=== PATIENT | female | born 1960 | race Caucasian/White ===

== ENCOUNTER 2021-02-02 11:14 | Outpatient (REF) | payer BC, SELFPAY ==
[2021-02-02 11:19] LABS: MANUAL DIFF FLAG NO
[2021-02-02 11:41] LABS: Basophils Absolute Auto 0.1 X10*3/uL (0.0-0.2); Basophils Percent Auto 0.9 % (0-2); Eosinophils Absolute Auto 0.2 X10*3/uL (0.0-0.4); Eosinophils Percent Auto 3.2 % (0-4); Hemoglobin 13.4 g/dl (12.0-16.0); Imm Gran Abs Auto 0.02 X10*3/uL (0.00-0.03); Imm Gran Pct Auto 0.4 % (0.0-0.4); Lymphocytes Absolute Auto 1.9 X10*3/uL (1.2-4.9); Lymphocytes Percent Auto 34.3 % (20-40); Mean Corpuscular HGB Conc 32.7 g/dl (31.0-35.0); Mean Corpuscular Hemoglobin 32.3 pg (27.0-33.0); Mean Corpuscular Volume 98.8 fL (80-98); Mean Platelet Volume 9.8 fL (9.4-12.3); Monocytes Absolute Auto 0.5 X10*3/uL (0.1-1.2); Monocytes Percent Auto 8.2 % (2-11); Platelet Count 336 X10*3/uL (160-400); Red Blood Count 4.15 X10*6/uL (4.20-5.50); Red Cell Distribution Width 12.1 % (11.0-16.0); White Blood Count 5.6 X10*3/uL (4.8-10.8)
[2021-02-02 12:13] LABS: Estimated Average Glucose 103 mg/dL; Hemoglobin A1C 119.4293 umol/L; Hemoglobin A1c % 5.2 %
[2021-02-02 12:16] LABS: Alanine Aminotransferase 18 U/L (0-31); Albumin Level 4.2 g/dL (3.5-5.0); Alkaline Phosphatase 90 U/L (39-117); Anion Gap 14 (12-20); Aspartate Amino Transferase 20 U/L (5-31); Bilirubin Total 0.6 mg/dL (0.0-1.0); Blood Urea Nitrogen 15 mg/dL (9-16); Calcium 9.2 mg/dL (8.4-10.2); Carbon Dioxide 25 mmol/L (22-29); Chloride 107 mmol/L (96-108); Cholesterol 251 mg/dL; Estimated Glomerular Filt Rate > 60; Glucose Fasting 102 mg/dL (60-99); HDL Cholesterol 80 mg/dL; LDL Cholesterol Calculated 161 mg/dl; Sodium 142 mmol/L (135-145); Total Protein 6.6 g/dL (6.5-8.0); Triglycerides 52 mg/dL
[2021-02-02 12:27] LABS: Reflex LDLD? No
[2021-02-02 12:29] LABS: TSH reflex Free T4 2.04 uIU/mL (0.32-4.0); Vitamin D 25-OH Total 25.5 ng/mL (>30)
[2021-02-02 12:45] LABS: Creatinine Urine 135.73 mg/dL; Microalbum/Creatinine Ratio Ur 11.7 ug/mg cr
== END 2021-02-02 11:15 | disposition home or self-care (01) ==
LOC: HO.LNP 11:14
PROVIDERS: Visit Provider Internal Medicine
DX: Z00.00 Encounter for general adult medical examination without abnormal findings (principal); E03.9 Hypothyroidism, unspecified; R73.03 Prediabetes; E78.00 Pure hypercholesterolemia, unspecified; E55.9 Vitamin D deficiency, unspecified
CPT/HCPCS: 80053; 80061; 82043; 82306; 83036; 84443; 85025

== ENCOUNTER 2021-02-27 08:08 | Outpatient (REF) | payer BC, SELFPAY ==
--- NOTE | ~2021-02-27 | MM_ITS ---
EXAMINATION: BONE DENSITOMETRY CLINICAL INDICATION: Osteopenia. COMPARISON: Baseline BD dated 12/26/2015. TECHNIQUE: Using a [employer] DXA System (software version: 13.1) manufactured by [employer], dual-energy x-ray absorptiometry was performed of the spine and left hip. The images are of good technical quality. Summary results are attached. FINDINGS: AP SPINE L1-L4: Current: BMD 0.982 g/cm2, Z-score -0.8, T-score -1.6, osteopenia, 12.0% decrease from baseline (<5% change is not significant). Baseline: BMD 1.116 g/cm2. LEFT FEMUR, NECK: Current: BMD 0.761 g/cm2, Z-score -1.0, T-score -2.0, osteopenia. Baseline: BMD 0.828 g/cm2. LEFT FEMUR, TOTAL: Current: BMD 0.866 g/cm2, Z-score -0.5, T-score -1.1, osteopenia, 4.2% decrease from baseline (<5% change is not significant). Baseline: BMD 0.904 g/cm2. IDENTIFIED RISK FACTORS: Menopause. HISTORY OF FRACTURE: None listed. MEDICATIONS: None listed. MM/XR DEXA axial skeleton IMPRESSION: 1. DIAGNOSIS: Osteopenia based on the lowest T-score value of -2.0 in the femoral neck applying World Health Organization criteria. 2. 10-YEAR FRACTURE RISK PREDICTION, FRAX: Major osteoporotic fracture (clinical spine, forearm, hip or shoulder) 9.0%. Hip fracture 1.1%. 3. Treatment Recommendations: NOF guidelines recommend consideration for treatment in postmenopausal women and men age 50 and older presenting with the following: -A hip or vertebral (clinical or morphometric) fracture. -T-score less than or equal to -2.5 at the femoral neck or spine after appropriate evaluation to exclude secondary causes. -Low bone mass at the hip or spine and a 10-year fracture probability by FRAX of greater than or equal to 3% for hip fracture or greater than or equal to 20% for major osteoporotic fracture based on the [place] adapted WHO algorithm. 4. Other Recommendations: All treatment decisions require clinical judgment and consideration of individual patient factors, including patient preferences, comorbidities, previous drug use, risk factors not captured in the FRAX model (e.g. frailty, falls, vitamin D deficiency, increased bone turnover, interval significant decline in bone density) and possible under or overestimation of fracture risk by FRAX. Additional medical evaluation for secondary cause of low bone mineral density may be appropriate. FUTURE SCAN RECOMMENDATION: People with diagnosed cases of osteoporosis or at high risk for fracture should have regular bone mineral density tests. For patients eligible for Medicare, routine testing is allowed once every 2 years. The testing frequency can be increased to one year for patients who have rapidly progressing disease, those who are receiving or discontinuing medical therapy to restore bone mass, or have additional risk factors.
== END 2021-02-27 08:09 | disposition home or self-care (01) ==
LOC: HO.MAMMO 08:08
PROVIDERS: PCP Internal Medicine; Visit Provider Internal Medicine
DX: Z13.820 Encounter for screening for osteoporosis (principal); M85.80 Other specified disorders of bone density and structure, unspecified site; Z78.0 Asymptomatic menopausal state
CPT/HCPCS: 77080

== ENCOUNTER 2021-05-28 10:22 | Outpatient (REF) | payer BC, SELFPAY ==
--- NOTE | ~2021-05-28 | US_ITS ---
EXAMINATION: US EXTRACRANIAL CAROTID DUPLEX, BILATERAL CLINICAL INFORMATION: This a 60-year-old female with TIA. Possible carotid artery disease. COMPARISON: None TECHNIQUE: Real-time ultrasound and Doppler techniques (integrating B-mode 2-D vascular images, Doppler spectral analysis and color-flow Doppler imaging) were utilized to interrogate the extracranial carotid arteries, the vertebral arteries and proximal subclavian arteries bilaterally. The degree of stenosis is determined by criteria similar to NASCET. FINDINGS: Right Side: 1. There is minimal atherosclerotic plaque seen in the bifurcation/proximal ICA region. 2. The common carotid artery PSV proximally is 71 cm/s and distally 90 cm/s. 3. The proximal internal carotid artery velocities are 66 cm/s systolic and 28 cm/s diastolic. 4. The proximal external carotid artery PSV is 81 cm/s. 5. The vertebral artery shows antegrade flow. 6. The subclavian artery waveforms are normal. Left Side: 1. There is minimal atherosclerotic plaque seen in the bifurcation/proximal ICA region. 2. The common carotid artery PSV proximally is 80 cm/s and distally 85 cm/s. 3. The proximal internal carotid artery velocities are 120 cm/s systolic and 43 cm/s diastolic. 4. The proximal external carotid artery PSV is 85 cm/s. 5. The vertebral artery shows antegrade flow. 6. The subclavian artery waveforms are normal. US/US carotid duplex BI IMPRESSION: 1. RIGHT: Minimal, non-hemodynamically significant stenosis of the proximal right internal carotid artery corresponding to a 0-49% stenosis by velocity criteria. 2. LEFT: Minimal, non-hemodynamically significant stenosis of the proximal left internal carotid artery corresponding to a 0-49% stenosis by velocity criteria.
== END 2021-05-28 10:23 | disposition home or self-care (01) ==
LOC: HO.US 10:22
PROVIDERS: PCP Internal Medicine; Visit Provider Internal Medicine
DX: Z86.73 Personal history of transient ischemic attack (TIA), and cerebral infarction without residual deficits (principal)
CPT/HCPCS: 93880

== ENCOUNTER → 2021-06-16 10:36 | Outpatient (REF) | payer BC, SELFPAY | LOC: HO.CARD 10:36 | PROVIDERS: Visit Provider Internal Medicine | DX: G45.9 Transient cerebral ischemic attack, unspecified (principal) | CPT/HCPCS: 93270 ==

== ENCOUNTER → 2021-08-12 06:57 | Outpatient (REF) | payer BC, SELFPAY ==
--- NOTE | 2021-08-12 07:02 | HM_ITS ---
Conclusion: 1. Patient was monitored for total period of 14 days 2. Baseline rhythm is normal sinus rhythm with average heart of 81 beats per minute 3. No significant pauses or bradycardia noted 4.No atrial fibrillation noted 5. Very rare ectopy is noted 6. 1 patient reported event correlated with sinus rhythm MTDD
== END ==
LOC: HO.CARD 06:57
PROVIDERS: PCP Internal Medicine; Visit Provider Internal Medicine
DX: G45.9 Transient cerebral ischemic attack, unspecified (principal)
CPT/HCPCS: 93246

== ENCOUNTER → 2021-08-20 07:40 | Outpatient (REF) | payer BC, SELFPAY ==
--- NOTE | 2021-08-20 07:44 | CA_ITS ---
Transthoracic Echocardiogram Patient (Last, First, Middle): Vandana Cai, Gender: Female Date of : 1960 Age: 61 Procedure Date: 08/20/2021 Procedure Type: Transthoracic Echocardiogram Location: OP Height: 157.48 cm Weight: 75.75 kg BSA: 1.77 m2 Heart Rate: bpm BP: 120 / 80 mmHg Director Perioperative: HARJEET Referring MD: Hal Castelan MD Symptoms: G45.9 TIA , Study Quality: Good ECG Rhythm: Sinus Conclusions: - The left ventricular systolic function is normal. The calculated ejection fraction is 61% by biplane method. - Bubble study strongly positive during rest as well as valsalva. - No obvious valvular pathology seen on this study. Findings Left Ventricle Normal left ventricular cavity size. There is normal left ventricular wall thickness. The left ventricular systolic function is normal. The calculated ejection fraction is 61% by biplane method. There is no evidence of regional wall motion abnormalities. Diastolic function is normal for age. Right Ventricle Normal right ventricular cavity size and systolic function. Atria Both atria are normal in size. Bubble study strongly positive during rest as well as valsalva. Indicates patent foramen ovale. Aortic Valve There is a normal trileaflet aortic valve. There is no aortic valve stenosis. There is no aortic valve regurgitation. Mitral Valve There is mild anterior mitral leaflet thickening. There is trace mitral valve regurgitation. There is no mitral valve stenosis. Pulmonic Valve The pulmonic valve was not well visualized. Tricuspid Valve Normal tricuspid valve structure. There is trace tricuspid valve regurgitation. The pulmonary artery systolic pressure is normal. Great Vessels The aortic annulus, sinuses of valsalva, and asc aorta are normal in size. Venous The inferior vena cava is normal in size and collapses greater than 50% with inspiration. Pericardium/Pleural There is no evidence of pericardial effusion. Prior Study Comparison No prior study available for comparison. Recommendations, Care & Conclusions No obvious valvular pathology seen on this study. Measurements 2D Linear Measurements IVSd: 1.10 0.6-0.9/0.6-1.0 cm LVIDd: 4.06 3.9-5.3/4.2-5.9 cm LVIDd Index: 2.29 2.4-3.2/2.2-3.1 cm/m2 LVIDs: 2.81 2.0-3.6 cm LVPWd: 1.03 0.7-1.1 cm Ao Root: 3.00 2.1-3.5 cm LA Diam: 3.50 2.7-3.8/3.0-4.0 cm LAIDs Index: 1.98 1.5-2.3 cm/m2 LV Mass: 177.06 67-162/88-224 g LV Mass Index: 100.04 43-95/49-115 g/m2 LVOT Diam: 2.00 3.0+(-)1.3 cm 2D Systolic Function EF 4C: 58.30 >55% EF 2C: 62.30 >55% EF BiP: 60.60 >55% Mitral Valve MV Pk E: 0.79 MV PK A: 0.71 MV Decel Time: 250.00 E/A: 1.10 E'Lateral: 6.96 E'Medial: 6.74 E/E' Med: 11.70 E/E' Lat: 11.30 PHT: 73.00 MVA PHT: 3.01 Decel [place]: 3.14 Aortic Valve AoV Pk Josh: 1.13 AoV Mn Josh: 0.78 AoV VTI: 0.23 AoV Pk Grad: 5.00 Aov Mn Grad: 3.00 HERBERT Cont.VTI: 2.56 LVOT LVOT Pk Josh: 0.84 LVOT Mn Josh: 0.55 LVOT VTI: 0.19 LVOT Pk Grad: 3.00 LVOT Mn Grad: 1.00 LVOT Diam: 2.00 LVOT Area: 3.14 Diastolic Function MV Pk E: 0.79 MV Pk A: 0.71 E/A: 1.10 E'Medial: 6.74 E/E' Med: 11.70 E' Laterial: 6.96 E/E' Lat: 11.30 Right Ventricle TAPSE (mm): 17.00 TVS' Josh: 11.40 Tricuspid Valve TR Pk Josh: 1.93 TR Pk Grad: 15.00 RA Press: 3.00 RVSP: 18.00 Great Vessels Aorta Ao Root-2D: 3.00 2.0-3.7 cm Ao Asc: 3.10 2.1-3.4 cm Ao Arch: 2.30 Updated in Other Vendor System with Status of Final Arnel Emery MD electronically signed on 08/22/2021 11:51:30 AM with status of Final
== END ==
LOC: HO.CARD 07:40
PROVIDERS: PCP Internal Medicine; Visit Provider Internal Medicine
DX: G45.9 Transient cerebral ischemic attack, unspecified (principal)
CPT/HCPCS: 93306

== ENCOUNTER → 2021-08-28 11:08 | Outpatient (BNVA) | payer BC, SELFPAY | PROVIDERS: PCP Internal Medicine; Referring Provider Internal Medicine; Visit Provider Internal Medicine Cardiovascular Disease ==

== ENCOUNTER 2021-08-29 08:09 | Outpatient (REF) | payer BC, SELFPAY ==
[2021-08-29 09:05] LABS: Partial Thromboplastin Time 33.5 SEC (24.1-38.0)
[2021-08-31 15:01] LABS: Cardiolipin IgG Ab <2.0 GPL-U/mL; Cardiolipin IgM Ab <2.0 MPL-U/mL
[2021-08-31 17:01] LABS: Homocysteine 12.2 umol/L (<10.4)
[2021-09-01 22:57] LABS: Protein C Activity 140 % (70-180); Protein S Activity rflx Tot&Fr 98 % (60-140)
[2021-09-05 12:51] LABS: Lipoprotein Asso Phospholip A2 74 (<124)
[2021-09-05 23:53] LABS: Factor V Leiden NEGATIVE
== END 2021-08-29 08:10 | disposition home or self-care (01) ==
LOC: HO.LAB 08:09
PROVIDERS: PCP Internal Medicine; Visit Provider Internal Medicine Cardiovascular Disease
DX: I63.9 Cerebral infarction, unspecified (principal)
CPT/HCPCS: 36415; 81241; 83090; 83698; 85302; 85303; 85305; 85306; 85730; 86147

== ENCOUNTER 2021-10-26 10:42 | Outpatient (REF) | payer BC, SELFPAY ==
[2021-10-26 11:20] LABS: Estimated Average Glucose 111 mg/dL; Hemoglobin A1c % 5.5 %
[2021-10-26 11:30] LABS: Alanine Aminotransferase 42 U/L (0-31); Alkaline Phosphatase 119 U/L (39-117); Aspartate Amino Transferase 30 U/L (5-31); Bilirubin Direct 0.3 mg/dL (0.0-0.5); Cholesterol 165 mg/dL; Glucose Fasting 101 mg/dL (60-99); HDL Cholesterol 68 mg/dL; LDL Cholesterol Calculated 88 mg/dl; Total Protein 6.7 g/dL (6.5-8.0); Triglycerides 46 mg/dL
== END 2021-10-26 10:43 | disposition home or self-care (01) ==
LOC: HO.LNP 10:42
PROVIDERS: PCP Internal Medicine; Visit Provider Internal Medicine
DX: E78.00 Pure hypercholesterolemia, unspecified (principal); R73.09 Other abnormal glucose
CPT/HCPCS: 80061; 80076; 82947; 83036

== ENCOUNTER 2021-12-29 12:54 | Outpatient (REF) | payer BC, SELFPAY ==
[2021-12-29 13:17] LABS: MANUAL DIFF FLAG NO
[2021-12-29 14:44] LABS: Basophils Absolute Auto 0.1 X10*3/uL (0.0-0.2); Eosinophils Absolute Auto 0.2 X10*3/uL (0.0-0.4); Eosinophils Percent Auto 3.3 % (0-4); Hemoglobin 13.2 g/dl (12.0-16.0); Imm Gran Abs Auto 0.01 X10*3/uL (0.00-0.03); Imm Gran Pct Auto 0.2 % (0.0-0.4); Lymphocytes Absolute Auto 1.9 X10*3/uL (1.2-4.9); Lymphocytes Percent Auto 37.2 % (20-40); Mean Corpuscular HGB Conc 32.2 g/dl (31.0-35.0); Mean Corpuscular Hemoglobin 31.5 pg (27.0-33.0); Mean Corpuscular Volume 97.9 fL (80.0-98.0); Mean Platelet Volume 9.7 fL (9.4-12.3); Monocytes Absolute Auto 0.4 X10*3/uL (0.1-1.2); Monocytes Percent Auto 7.4 % (2-11); Neutrophils Absolute Auto 2.6 x10*3/uL (2.0-8.3); Neutrophils Percent Auto 50.9 % (45-73); Platelet Count 354 X10*3/uL (160-400); Red Blood Count 4.19 X10*6/uL (4.20-5.50); Red Cell Distribution Width 12.3 % (11.0-16.0); White Blood Count 5.2 X10*3/uL (4.8-10.8)
[2021-12-29 14:47] LABS: INTERNATIONAL NORM RATIO 0.9 (0.9-1.1); Prothrombin Time 10.6 SEC (10.0-13.1)
[2021-12-29 15:12] LABS: Anion Gap 11 (12-20); Blood Urea Nitrogen 12 mg/dL (9-16); Calcium 8.9 mg/dL (8.4-10.2); Carbon Dioxide 27 mmol/L (22-29); Chloride 105 mmol/L (96-108); Estimated Glomerular Filt Rate > 60; Glucose Random 85 mg/dL (60-115); Potassium 4.1 mmol/L (3.3-5.1); Sodium 139 mmol/L (135-145)
== END 2021-12-29 12:55 | disposition home or self-care (01) ==
LOC: HO.LAB 12:54
PROVIDERS: PCP Internal Medicine; Visit Provider Internal Medicine Cardiovascular Disease
DX: I63.10 Cerebral infarction due to embolism of unspecified precerebral artery (principal)
CPT/HCPCS: 36415; 80048; 85025; 85610

== ENCOUNTER 2022-01-25 10:19 | Outpatient (REF) | payer BC, SELFPAY ==
[2022-01-25 10:23] LABS: MANUAL DIFF FLAG NO
[2022-01-25 10:38] LABS: Basophils Absolute Auto 0.1 X10*3/uL (0.0-0.2); Basophils Percent Auto 0.9 % (0-2); Eosinophils Absolute Auto 0.2 X10*3/uL (0.0-0.4); Hematocrit 40.5 % (37.0-47.0); Hemoglobin 13.4 g/dl (12.0-16.0); Imm Gran Abs Auto 0.03 X10*3/uL (0.00-0.03); Imm Gran Pct Auto 0.4 % (0.0-0.4); Lymphocytes Absolute Auto 1.9 X10*3/uL (1.2-4.9); Mean Corpuscular HGB Conc 33.1 g/dl (31.0-35.0); Mean Corpuscular Hemoglobin 32.2 pg (27.0-33.0); Mean Corpuscular Volume 97.4 fL (80.0-98.0); Monocytes Absolute Auto 0.5 X10*3/uL (0.1-1.2); Monocytes Percent Auto 7.8 % (2-11); Neutrophils Absolute Auto 4.2 x10*3/uL (2.0-8.3); Neutrophils Percent Auto 60.9 % (45-73); Platelet Count 321 X10*3/uL (160-400); Red Blood Count 4.16 X10*6/uL (4.20-5.50); Red Cell Distribution Width 12.2 % (11.0-16.0)
[2022-01-25 10:51] LABS: Estimated Average Glucose 105 mg/dL; Hemoglobin A1c % 5.3 %
[2022-01-25 11:01] LABS: Alanine Aminotransferase 31 U/L (0-31); Albumin Level 4.1 g/dL (3.5-5.0); Alkaline Phosphatase 99 U/L (39-117); Anion Gap 14 (12-20); Aspartate Amino Transferase 26 U/L (5-31); Bilirubin Total 0.9 mg/dL (0.0-1.0); Blood Urea Nitrogen 14 mg/dL (9-16); Calcium 9.1 mg/dL (8.4-10.2); Carbon Dioxide 26 mmol/L (22-29); Chloride 106 mmol/L (96-108); Cholesterol 172 mg/dL; Estimated Glomerular Filt Rate > 60; Glucose Fasting 89 mg/dL (60-99); HDL Cholesterol 68 mg/dL; LDL Cholesterol Calculated 91 mg/dl; Potassium 4.7 mmol/L (3.3-5.1); Sodium 141 mmol/L (135-145); Total Protein 6.8 g/dL (6.5-8.0); Triglycerides 69 mg/dL
[2022-01-25 11:21] LABS: TSH reflex Free T4 0.98 uIU/mL (0.32-4.0); Vitamin D 25-OH Total 33.1 ng/mL (>30)
[2022-01-25 11:33] LABS: Microalbum/Creatinine Ratio Ur 17.6 ug/mg cr
== END 2022-01-25 10:20 | disposition home or self-care (01) ==
LOC: HO.LNP 10:19
PROVIDERS: Visit Provider Internal Medicine
DX: Z00.00 Encounter for general adult medical examination without abnormal findings (principal); E03.9 Hypothyroidism, unspecified; R73.03 Prediabetes; E78.00 Pure hypercholesterolemia, unspecified; E55.9 Vitamin D deficiency, unspecified
CPT/HCPCS: 80053; 80061; 82043; 82306; 83036; 84443; 85025

== ENCOUNTER 2022-12-24 11:01 | Outpatient (REF) | payer BC, SELFPAY ==
[2022-12-24 11:12] LABS: MANUAL DIFF FLAG NO
[2022-12-24 11:20] LABS: Basophils Percent Auto 0.7 % (0-2); Eosinophils Absolute Auto 0.2 X10*3/uL (0.0-0.4); Eosinophils Percent Auto 3.3 % (0-4); Hematocrit 42.3 % (37.0-47.0); Hemoglobin 14.1 g/dl (12.0-16.0); Imm Gran Abs Auto 0.02 X10*3/uL (0.00-0.03); Imm Gran Pct Auto 0.4 % (0.0-0.4); Lymphocytes Absolute Auto 1.4 X10*3/uL (1.2-4.9); Lymphocytes Percent Auto 25.3 % (20-40); Mean Corpuscular HGB Conc 33.3 g/dl (31.0-35.0); Mean Corpuscular Hemoglobin 32.4 pg (27.0-33.0); Mean Corpuscular Volume 97.2 fL (80.0-98.0); Mean Platelet Volume 9.7 fL (9.4-12.3); Monocytes Absolute Auto 0.4 X10*3/uL (0.1-1.2); Monocytes Percent Auto 7.5 % (2-11); Neutrophils Absolute Auto 3.5 x10*3/uL (2.0-8.3); Neutrophils Percent Auto 62.8 % (45-73); Platelet Count 353 X10*3/uL (160-400); Red Blood Count 4.35 X10*6/uL (4.20-5.50); Red Cell Distribution Width 12.4 % (11.0-16.0); White Blood Count 5.5 X10*3/uL (4.8-10.8)
[2022-12-24 11:26] LABS: Estimated Average Glucose 100 mg/dL; Hemoglobin A1c % 5.1 %
[2022-12-24 11:36] LABS: Alanine Aminotransferase 22 U/L (0-31); Albumin Level 4.1 g/dL (3.5-5.0); Alkaline Phosphatase 104 U/L (39-117); Anion Gap 15 (12-20); Aspartate Amino Transferase 24 U/L (5-31); Bilirubin Total 0.7 mg/dL (0.0-1.0); Blood Urea Nitrogen 15 mg/dL (9-16); Calcium 9.9 mg/dL (8.4-10.2); Carbon Dioxide 25 mmol/L (22-29); Chloride 108 mmol/L (96-108); Cholesterol 261 mg/dL; Estimated Glomerular Filt Rate > 60; Glucose Fasting 107 mg/dL (60-99); HDL Cholesterol 72 mg/dL; LDL Cholesterol Calculated 173 mg/dl; Potassium 4.7 mmol/L (3.3-5.1); Sodium 143 mmol/L (135-145); Total Protein 6.6 g/dL (6.5-8.0); Triglycerides 84 mg/dL
[2022-12-24 11:50] LABS: TSH reflex Free T4 0.76 uIU/mL (0.32-4.0); Vitamin D 25-OH Total 34.5 ng/mL (>30)
== END 2022-12-24 11:02 | disposition home or self-care (01) ==
LOC: HO.LNP 11:01
PROVIDERS: Visit Provider Internal Medicine
DX: Z00.00 Encounter for general adult medical examination without abnormal findings (principal); E03.9 Hypothyroidism, unspecified; R73.03 Prediabetes; E78.00 Pure hypercholesterolemia, unspecified; E55.9 Vitamin D deficiency, unspecified
CPT/HCPCS: 80053; 80061; 82306; 83036; 84443; 85025

== ENCOUNTER 2022-12-31 11:01 | Outpatient (REF) | payer BC, SELFPAY | END 2022-12-31 11:02 | disposition home or self-care (01) | LOC: HO.LNP 11:01 | PROVIDERS: Visit Provider Internal Medicine | DX: Z00.00 Encounter for general adult medical examination without abnormal findings (principal); R73.03 Prediabetes | CPT/HCPCS: 81001; 82043; 87086 ==

== ENCOUNTER 2023-04-11 11:05 | Outpatient (REF) | payer BC, SELFPAY ==
[2023-04-11 11:47] LABS: Estimated Average Glucose 103 mg/dL; Hemoglobin A1c % 5.2 % (<6.0)
[2023-04-11 12:22] LABS: Cholesterol 258 mg/dL (<200); HDL Cholesterol 69 mg/dL (>40); LDL Cholesterol Calculated 174 mg/dL (<100); Triglycerides 77 mg/dL (<150)
[2023-04-11 12:35] LABS: Alanine Aminotransferase 20 U/L (0-31); Albumin Level 4.2 g/dL (3.5-5.0); Alkaline Phosphatase 86 U/L (39-117); Aspartate Amino Transferase 23 U/L (5-31); Bilirubin Direct 0.2 mg/dL (0.0-0.5); Bilirubin Total 0.7 mg/dL (0.0-1.0); Glucose Fasting 97 mg/dL (60-99)
[2023-04-11 13:37] LABS: Reflex LDLD? No
== END 2023-04-11 11:06 | disposition home or self-care (01) ==
LOC: HO.LNP 11:05
PROVIDERS: Visit Provider Internal Medicine
DX: R73.03 Prediabetes (principal); E78.00 Pure hypercholesterolemia, unspecified
CPT/HCPCS: 80061; 80076; 82947; 83036

== ENCOUNTER 2023-04-13 11:56 | Outpatient (REF) | payer BC, SELFPAY ==
--- NOTE | ~2023-04-13 | XR_ITS ---
EXAMINATION: XR HIP, RIGHT CLINICAL INFORMATION: Right hip pain. COMPARISON: CT abdomen and pelvis 06/30/2015. TECHNIQUE: 2 views of the right hip. FINDINGS: Mild degenerative changes on limited views of the inferior aspect of the right sacroiliac joint. Right femoral head is well seated within the acetabulum. Mild degenerative changes in the right hip with mild lateral acetabular hypertrophic change. Small, 7 mm oval ossicle at the inferior aspect of the pubic symphysis was present on CT scan of 06/30/2015. XR/XR hip RT min 2V IMPRESSION: Mild degenerative changes right hip. Additional imaging with CT scan or MRI should be considered for better visualization as these modalities are much more sensitive for detection of fracture or other underlying pathology.
== END 2023-04-13 11:57 | disposition home or self-care (01) ==
LOC: HO.XRAY 11:56
PROVIDERS: PCP Internal Medicine; Visit Provider Internal Medicine
DX: M25.551 Pain in right hip (principal)
CPT/HCPCS: 73502

== ENCOUNTER 2023-05-10 08:20 | Outpatient (REF) | payer BC, SELFPAY ==
--- NOTE | ~2023-05-10 | US_ITS ---
EXAMINATION: US ABDOMEN COMPLETE CLINICAL INFORMATION: Gallbladder disease. COMPARISON: Renal ultrasound 03/24/2017. X-ray abdomen KUB 07/30/2015. CT abdomen and pelvis 06/30/2015. Ultrasound abdomen 01/12/2010. TECHNIQUE: Real-time imaging of the abdominal viscera. FINDINGS: PANCREAS: Normal. ABDOMINAL AORTA: The proximal, mid, and distal segments are normal in caliber. INFERIOR VENA CAVA: Visualized portions are normal. LIVER: The liver is normal in size. The liver contour is normal. There is diffuse increased liver parenchymal echogenicity. No focal hepatic lesion. There is no intrahepatic biliary duct dilatation seen. GALLBLADDER: The gallbladder is physiologically distended without evidence of stones, sludge, polyps, wall thickening or pericholecystic fluid. COMMON BILE DUCT: Normal in caliber measuring 0.4 cm in diameter. RIGHT KIDNEY: There is an extrarenal pelvis, without norah hydronephrosis. No renal calculi or focal parenchymal lesions. The kidney measures 12.4 cm in maximum dimension. LEFT KIDNEY: There is an extrarenal pelvis, without norah hydronephrosis or renal calculi. The kidney measures 11.2 cm in maximum dimension. At the upper pole, a 1.3 cm benign, simple cyst is seen, for which no imaging follow-up is recommended. SPLEEN: Normal. The spleen measures 9.2 cm in maximum dimension. FREE FLUID: None. US/US abdomen complete IMPRESSION: There is generalized increase in hepatic echotexture, consistent with fatty infiltration or hepatocellular disease. Please correlate clinically. No focal hepatic mass or intrahepatic biliary dilatation is seen.
== END 2023-05-10 08:21 | disposition home or self-care (01) ==
LOC: HO.US 08:20
PROVIDERS: PCP Internal Medicine; Visit Provider Internal Medicine
DX: K82.9 Disease of gallbladder, unspecified (principal)
CPT/HCPCS: 76700

== ENCOUNTER 2023-07-26 10:07 | Outpatient (REF) | payer BC, SELFPAY ==
--- NOTE | ~2023-07-26 | FL_ITS ---
EXAMINATION: XR FLUOROSCOPY UPPER GI WITH AIR CLINICAL INFORMATION: Chronic nausea COMPARISON: None TECHNIQUE: Fluoroscopic air contrast upper GI examination was performed utilizing standard techniques with thin and thick barium and effervescent granules. Numerous spot images were obtained. FINDINGS: Inter-atrial baffle device is present, consistent with history of PFO closure. Dual and single contrast images of the esophagus demonstrate normal caliber, contour, and mucosal pattern. No evidence of stricture, mass, or ulcerations identified. Nonpropulsive tertiary contractions are seen in the mid and distal esophagus. A small to moderate type I hiatal hernia is present. Gastroesophageal reflux is seen up to the thoracic inlet. Dual contrast and single contrast images of the stomach demonstrated normal contour and mucosal pattern without evidence of mass, ulceration, or other abnormality. Contrast freely passed into the gastric antrum and duodenal bulb without delay. Single and air-contrast images of the duodenal bulb demonstrate no abnormality. The duodenal sweep has a normal appearance, course, and mucosal fold appearance. No malrotation. The imaged proximal jejunum has a normal fold pattern and caliber. FLUOROSCOPY TIME: 3 minutes 17 seconds Number of Spot Images: 13 Number of Cine: 7 DOSE AREA PRODUCT: [id number] (microgray-meter squared) FL/FL upper GI w air IMPRESSION: 1. Mild esophageal dysmotility 2. Small to moderate type I hiatal hernia 3. Significant gaseous esophageal reflux This procedure was performed by Dontrell Handley PA-C, and supervised by Dr. Dickinson
== END 2023-07-26 10:08 | disposition home or self-care (01) ==
LOC: HO.XRAY 10:07
PROVIDERS: PCP Internal Medicine; Visit Provider Internal Medicine
DX: R11.0 Nausea (principal)
CPT/HCPCS: 74246

== ENCOUNTER → 2023-07-26 10:09 | Outpatient (BNV) | payer BC, SELFPAY | PROVIDERS: PCP Internal Medicine; Visit Provider Radiology Diagnostic Radiology | DX: R11.0 Nausea (principal) | CPT/HCPCS: 74246 ==

== ENCOUNTER 2023-08-22 06:22 | Day surgery (SDC) | payer BC, SELFPAY ==
[2023-08-18 14:40] VITALS: BMI 32.7
--- NOTE | 2023-08-19 10:26 | HO.ANESPROP2 ---
Documented by User: Susan Marie NP 08/19/23 10:26 HPI - Anesthesia Eval Consult details Narrative: 63yo F for ?Upper Endoscopy and Colonoscopy PMFSH Active Problems Active Problems: All Active Problems (Updated 08/18/23 @ 14:40 by Joslyn Ram RN) PFO (patent foramen ovale) (Acute) CVA (cerebral vascular accident) (Acute) Past Medical History Medical History Renal calculi Asthma GERD (gastroesophageal reflux disease) Hypothyroid PFO (patent foramen ovale) CVA (cerebral vascular accident) Surgical History Surgical History Hx of heart surgery Hx of tonsillectomy Hx of dilation and curettage H/O colonoscopy Hx of lithotripsy Social History Social History Patient Tobacco Use Status: Never used Tobacco Are you DNR?: No Advance Directives: No Advance Directives Information Provided: Yes Nutrition Risks: No Nutritional Risk Meds Allergies Allergy/AdvReac Type Severity Reaction Status Date / Time morphine [MORPHINE] Allergy Intermediate CHEST Verified 08/22/23 06:35 TIGHTNESS, shortness of breath Home Medications Medication Instructions Recorded Confirmed Last Taken Type albuterol sulfate 90 mcg/actuation 90 mcg inhalation Q4H PRN 08/28/21 08/18/23 Unknown History aerosol inhaler Shortness Of Breath Or Wheezing aspirin 81 mg tablet,delayed 81 mg PO DAILY 08/28/21 08/18/23 Unknown History release (Adult Low Dose Aspirin) levothyroxine 88 mcg tablet 88 mcg PO QAM 08/28/21 08/18/23 Unknown History lisinopril 10 1 tab PO DAILY 08/18/23 08/18/23 08/22/23 History mg-hydrochlorothiazide 12.5 mg tablet omeprazole 20 mg capsule,delayed 20 mg PO QAM 08/18/23 08/18/23 Unknown History release Exam Height,Weight and Vital Signs: Height 5 ft 2 in Weight 81.193 kg Assessment and Plan Assessment Anesthesia Assessment: Chart Reviewed Documented by User: Josue Alonso MD 08/22/23 07:20 [facility] Past Medical History Medical History Renal calculi Asthma GERD (gastroesophageal reflux disease) Hypothyroid PFO (patent foramen ovale) CVA (cerebral vascular accident) Surgical History Surgical History Hx of heart surgery Hx of tonsillectomy Hx of dilation and curettage H/O colonoscopy Hx of lithotripsy Social History Social History Patient Tobacco Use Status: Never used Tobacco Are you DNR?: No Advance Directives: No Advance Directives Information Provided: Yes Nutrition Risks: No Nutritional Risk Meds Allergies Allergy/AdvReac Type Severity Reaction Status Date / Time morphine [MORPHINE] Allergy Intermediate CHEST Verified 08/22/23 06:35 TIGHTNESS, shortness of breath Home Medications Medication Instructions Recorded Confirmed Last Taken Type albuterol sulfate 90 mcg/actuation 90 mcg inhalation Q4H PRN 08/28/21 08/18/23 Unknown History aerosol inhaler Shortness Of Breath Or Wheezing aspirin 81 mg tablet,delayed 81 mg PO DAILY 08/28/21 08/18/23 Unknown History release (Adult Low Dose Aspirin) levothyroxine 88 mcg tablet 88 mcg PO QAM 08/28/21 08/18/23 Unknown History lisinopril 10 1 tab PO DAILY 08/18/23 08/18/23 08/22/23 History mg-hydrochlorothiazide 12.5 mg tablet omeprazole 20 mg capsule,delayed 20 mg PO QAM 08/18/23 08/18/23 Unknown History release Exam Airway Mallampati Class: II TM Dist: <=3cm Neck ROM: Full Loose/Missing/Broken Teeth: Yes (chipped 15) Heart: rrr Lungs: cta b/l Assessment and Plan Final Anesthetic Review ASA Class: III Final Preanesthetic Review: No Changes in Pt Med Stat, Meds/Allgs Chart Reviewed, Consent Obtained/Reviewed and Anes Risks/Benef Reviewed Patient Risk: Intermediate Procedure Risk: Intermediate Anesthetic Plan Anesthetic Plan: MAC: Disposition: Standard PACU
[2023-08-22 06:45] VITALS: BMI 32.5
[2023-08-22] MEDS: Lactated Ringers 1,000 ML 100 ML IVCONT (06:51)
[2023-08-22 06:58] VITALS: BP 139/83; PULSE 80; RESP 18; TEMP 36.6; O2SAT 97
[2023-08-22 08:30] VITALS: BP 91/56; PULSE 79; RESP 17; TEMP 36.1; O2SAT 100
--- NOTE | 2023-08-22 08:30 | P.BOP_ITS ---
Brief Operative Note Date of Service: 08/22/23 Pre-op diagnosis: GERD, Screening Post-op diagnosis: other (Hiatal hernia, Colon polyp) Procedure: EGD with biopsies, Colonoscopy to the cecum with bx/removal of polyp Surgeon: Aashish Dimas MD Anesthesia: MAC Was an Locomotive Electrician used for this Procedure?: No Estimated blood loss (mL): 2.0 Pathology: other (A. Gastric antrum B. EGJ at 33cm C. Transverse colon polyp) Condition: stable Disposition: PACU
[2023-08-22 08:45] VITALS: BP 112/65; PULSE 61; RESP 16; TEMP 36.1; O2SAT 100
--- NOTE | 2023-08-22 14:23 | OP_ITS ---
DATE OF SERVICE: 08/22/2023 SURGEON: Aashish Dimas MD INDICATIONS: The patient presents for evaluation of nausea, gastroesophageal reflux, and colorectal cancer screening. PREOPERATIVE DIAGNOSIS: POSTOPERATIVE DIAGNOSIS: PROCEDURE PERFORMED: Esophagogastroduodenoscopy with biopsies and colonoscopy to the cecum with biopsy and removal of polyp. ESTIMATED BLOOD LOSS: COMPLICATIONS: ANESTHESIA: Monitored anesthesia care. ASSISTANTS: SPECIMENS: POSTOPERATIVE DIAGNOSES: GERD, hiatal hernia, minimal gastritis, small colon polyp, diverticulosis, and internal hemorrhoids. DESCRIPTION OF PROCEDURE: The patient was placed in the left lateral decubitus position. The Olympus video gastroscope was passed in the posterior oropharynx and upper esophagus under direct vision. The scope was passed slowly to the distal esophagus. The gastroesophageal junction was seen at 33 cm and appeared to be minimally irregular consistent with reflux. There was no gross evidence of esophagitis nor Marlow's esophagus. There was a moderate-sized hiatal hernia with normal mucosa. The scope was advanced to the pylorus and the duodenum was cannulated to the descending portion. The duodenum including the bulb appeared normal without mass or ulceration. The scope was withdrawn back to the stomach. The gastric antrum had some minimal areas of erythema, but no erosions or ulceration. There was good peristalsis. Biopsies were obtained from the antrum. The scope was retroflexed visualizing the proximal stomach carefully, which appeared normal, without any sign of mass or ulceration. The scope was straightened and withdrawn back to the esophagus. Biopsies were obtained at the EG junction at 33 cm. Proximal to this, the esophageal mucosa appeared normal. The scope was withdrawn from the patient. She was turned around for the colonoscopy. The digital rectal exam revealed no abnormalities. The Olympus video pediatric colonoscope was then entered into the rectum and advanced to the cecum with the assistance of abdominal wall pressure. Once in the cecum, I did identify normal-appearing cecal pouch with appendiceal orifice and a normal-appearing ileocecal valve. There was transillumination of light deep in the right lower quadrant. The entire cecum and ileocecal valve appeared normal. The scope was slowly withdrawn assessing all mucosal surfaces carefully. Preparation was excellent. In the transverse colon, was a small, less than 5 mm polyp, which was removed by cold biopsy forceps completely. I did not visualize any other polyps, colitis, or angiodysplasia. There was a mild amount of sigmoid diverticulosis. In the rectum, scope was retroflexed visualizing internal hemorrhoids, but no other pathology. The rectal mucosa appeared normal. The scope was straightened and withdrawn from the patient. She tolerated both procedures well and was returned to the recovery area in stable condition. IMPRESSION: 1. Hiatal hernia, gastroesophageal reflux. 2. Minimal gastritis. 3. Colon polyp. 4. Diverticulosis. 5. Internal hemorrhoids. PLAN: The results of the biopsies will be checked. If the colon polyp is a tubular adenoma, I would recommend a followup colonoscopy in 5 years. If it is only hyperplastic, I would recommend a followup coloscopy in 10 years. In regard to her nausea and upper GI complaints, I did advise her to continue her omeprazole. She has been on that for about a month and reports that the nausea has improved somewhat. Her main complaint is that of some coffee maker servicer nausea when she wakes up, but then as the day progresses, she feels fine and the majority of her symptoms are fairly early in the morning just as she awakens. Therefore, she may be having some nocturnal reflux. I did advise to be sure not to eat or drink anything for several hours before bedtime and to continue the omeprazole. If the morning hours are worse and symptoms persist, I then advised her that she could switch the omeprazole from every morning to perhaps every late afternoon to see if that gives her better relief overnight. She will be seen in followup as well. She was advised not to use any aspirin and NSAIDs for 1 week. This has been discussed with her . MD JASON Tom/SUNDAR / [id number] [facility]
== END 2023-08-22 09:09 | disposition home or self-care (01) ==
PROVIDERS: PCP Internal Medicine; Visit Provider Internal Medicine
PROC: (CPT 45380; principal; 2023-08-22 07:30)
DX: Z12.11 Encounter for screening for malignant neoplasm of colon (principal); K63.5 Polyp of colon; K57.30 Diverticulosis of large intestine without perforation or abscess without bleeding; K64.8 Other hemorrhoids; K21.9 Gastro-esophageal reflux disease without esophagitis; K29.50 Unspecified chronic gastritis without bleeding; K44.9 Diaphragmatic hernia without obstruction or gangrene; E03.9 Hypothyroidism, unspecified; J45.990 Exercise induced bronchospasm; Z79.899 Other long term (current) drug therapy; Z79.82 Long term (current) use of aspirin; Z87.442 Personal history of urinary calculi; Z86.73 Personal history of transient ischemic attack (TIA), and cerebral infarction without residual deficits; Z98.890 Other specified postprocedural states
CPT/HCPCS: 45380; 43239; 88305; 88313; 88342; J1596; J2704

== ENCOUNTER 2023-12-27 11:59 | Outpatient (REF) | payer BC, SELFPAY ==
[2023-12-27 12:03] LABS: MANUAL DIFF FLAG NO
[2023-12-27 12:23] LABS: Basophils Percent Auto 0.8 % (0-2); Eosinophils Absolute Auto 0.2 X10*3/uL (0.0-0.4); Eosinophils Percent Auto 3.7 % (0-4); Hematocrit 39.8 % (37.0-47.0); Hemoglobin 13.4 g/dl (12.0-16.0); Imm Gran Abs Auto 0.01 X10*3/uL (0.00-0.03); Imm Gran Pct Auto 0.2 % (0.0-0.4); Lymphocytes Absolute Auto 1.5 X10*3/uL (1.2-4.9); Lymphocytes Percent Auto 30.5 % (20-40); Mean Corpuscular HGB Conc 33.7 g/dl (31.0-35.0); Mean Platelet Volume 9.7 fL (9.4-12.3); Monocytes Absolute Auto 0.4 X10*3/uL (0.1-1.2); Monocytes Percent Auto 7.3 % (2-11); Neutrophils Absolute Auto 2.8 x10*3/uL (2.0-8.3); Neutrophils Percent Auto 57.5 % (45-73); Platelet Count 375 X10*3/uL (160-400); Red Blood Count 4.06 X10*6/uL (4.20-5.50); White Blood Count 4.9 X10*3/uL (4.8-10.8)
[2023-12-27 12:30] LABS: Estimated Average Glucose 114 mg/dL; Hemoglobin A1c % 5.6 % (<6.0)
[2023-12-27 12:54] LABS: Alanine Aminotransferase 27 U/L (0-31); Alkaline Phosphatase 84 U/L (39-117); Anion Gap 12 (12-20); Aspartate Amino Transferase 23 U/L (5-31); Bilirubin Total 0.7 mg/dL (0.0-1.0); Blood Urea Nitrogen 13 mg/dL (9-16); Calcium 9.6 mg/dL (8.4-10.2); Carbon Dioxide 26 mmol/L (22-29); Chloride 106 mmol/L (96-108); Cholesterol 240 mg/dL (<200); Estimated Glomerular Filt Rate > 60; Glucose Random 100 mg/dL (60-115); HDL Cholesterol 63 mg/dL (>40); LDL Cholesterol Calculated 161 mg/dL (<100); Potassium 4.1 mmol/L (3.3-5.1); Sodium 140 mmol/L (135-145); Total Protein 6.7 g/dL (6.5-8.0); Triglycerides 83 mg/dL (<150)
[2023-12-27 12:57] LABS: TSH reflex Free T4 0.29 uIU/mL (0.32-4.0); Vitamin D 25-OH Total 33.1 ng/mL (>30)
== END 2023-12-27 12:00 | disposition home or self-care (01) ==
LOC: HO.LNP 11:59
PROVIDERS: Visit Provider Internal Medicine
DX: Z00.00 Encounter for general adult medical examination without abnormal findings (principal); E03.9 Hypothyroidism, unspecified; R73.09 Other abnormal glucose; E78.00 Pure hypercholesterolemia, unspecified; E55.9 Vitamin D deficiency, unspecified; I10 Essential (primary) hypertension
CPT/HCPCS: 80053; 80061; 82306; 83036; 84439; 84443; 85025

== ENCOUNTER 2024-11-15 12:15 | Outpatient (REF) | payer BC, SELFPAY ==
--- OUTSIDE RECORDS SUMMARY | 2024-11-15 12:29 | XMS_ITS ---
Author Organization Hal Castelan MD Address [address] [place] [phone] Care Team Providers Care Pmp Project Manager Name Role Phone Hal Castelan Primary Care Provider Allergies No Known Allergies Reason For Referral Reason fatty liver Diagnosis 1 Fatty liver (K76.0) Referral Organization Hal Castelan MD Referring Provider First Name Hal Referring Provider Last Name Annelise Referring Provider Speciality Internal M edicine Referred Provider Aashish Ely Referred Provider Specialty Gastroentero logy General Notes Gladys Calloway 0 07/09/2024 09:02:36 AM > info faxed, Selena Estes 07/09/2024 10:03:29 AM >APPT SCHEDULED, Gladys Calloway 07/13/2024 02:07:30 PM > referral info mailed to patient Referral Priority Routine Referral Appointment Date 11/06/2024 REASON FOR VISIT 6 months Medications Medication SIG (Take, Route, Frequency, Duration) Notes Start Date End Date Status Nystatin 283877 UNIT/GM 1 application to affected area Externally Twice a day for 30 days 01/19/2019 Not-Taking Advair Diskus 500-50 MCG/DOSE INHALE ONE PUFF(S) TWICE A DAY Inhalation Twice a day for 30 Not-Taking ProAir HFA 108 (90 Base) MCG/ACT 1 puff as needed Inhalation every 4 hrs for 30 days Not-Taking Omeprazole 20 MG TAKE ONE CAPSULE BY MOUTH EVERY MORNING 30 MINUTES BEFORE MORNING MEAL Active Albuterol Sulfate HFA 108 (90 Base) MCG/ACT USE 1 PUFF BY MOUTH EVERY 4 HOURS NEEDED for 25 Active Aspirin 81 81 MG 1 tablet Orally Once a day for 30 day(s) 04/28/2021 Active Lisinopril-hydroCHLOROthi azide 10-12.5 MG TAKE ONE TABLET BY MOUTH EVERY DAY Active Levothyroxine Sodium 88 MCG TAKE ONE TABLET BY MOUTH EVERY MORNING ON AN EMPTY STOMACH. Active Problems Problem Type SNOMED Code ICD Code Onset Dates Problem Status W/U Status Risk Notes Problem 147501752 Fatty liver (K76.0) Active confirmed Vital Signs Blood pressure systolic 132 mm Hg 07/09/19 25 Blood pressure diastolic 78 mm Hg 025 Height 61.75 in 07/09/2024 Weight 186 lbs 07/09/2024 BMI 34.29 kg/m2 07/09/2024 weight is up 5 pounds since 01-03-24 Encounters Encounter Location Date Provider Diagnosis Hal Castelan MD [address] [place] [address] [place] [phone] 07/09/2024 Hal Castelan Ankle tendinitis M77 .50 ; Pure hypercholesterolemia E78.00 and Fatty liver K76.0 Assessments Encounter Date Diagnosis (ICD Code) Assessment Notes Treatment Notes Treatment Clinical Notes Section Notes 07/09/2024 Ankle tendinitis (IC D-10 - M77.50) need notes from [facility]/ request will be sent for records 07/09/2024 Pure hypercholesterolemia (ICD-10 - E78.00) not wanting to use meds. will try diet control for 6 months, will continue to monitor 07/09/2024 Fatty liver (ICD-10 - K76.0) referral back to dr ely Plan Of Treatment Treatment Notes Assessment Notes Ankle tendinitis need notes from [facility] / request will be sent for records Pure hypercholesterolemia not wanting to use meds. will try diet control for 6 months, will continue to monitor Fatty liver referral back to dr ely Referrals Referral Date Details 07/09/2024 07/09/2024, fatty li noemy , Aashish Ely Next Appt Details Provider Name:Hal Ponce ier, 12/31/2024 07:30:00 AM, [address] [place] [address], [address], [place], [place], [phone], Provider Name:Hal Ponce ier, 01/07/2025 08:30:00 AM, [address] [place] [address], [address], [place], [place], [phone], Progress Notes * Vandana MARTINEZ ADOB:[birth year] (63 yo F)Acc No.[id number]:07/09/2024 Progress Notes Patient:?Vandana Martinez A Provider:?Hal Castelan MD :1960???Age:63 Y???Sex:Female D ate:07/09/2024 Address:[address] [place], [place] [phone] Subjective: * Chief Complaints: * ???6 months * HPI: ???Symptom(s):? patient is a 63 yo female here for 6 month follow up visit. . still having tendonitis in ankle had ct and mri. * ROS:?General/Constitutional:?Denies?Chills.?Denies?Fatigue.?Denies?Fever.?Denies?Headache.?ENT:?Patient denies?decreased sense of smell , any loss of taste , sore throat.?Denies?Sore throat.?Respiratory:?Denies?Cough.?Denies?Shortness of breath at rest.?Denies?Shortness of breath with exertion.?Gastrointestinal:?Denies?Diarrhea.?Denies?Nausea.?Musculoskeletal:?Patient denies?muscle aches.?Peripheral Vascular:?Patient denies?red and blue toes.? * Medical History:? * Surgical History:? * Hospitalization/Major Diagno stic Procedure:? * Medications:?TakingAspirin 8 1 81 MG Tablet Chewable 1 tablet Orally Once a dayLisinopril-hydroCHLOROthiazide 10-12.5 MG Tablet TAKE ONE TABLET BY MOUTH EVERY DAY Levothyroxine Sodium 88 MCG Tablet TAKE ONE TABLET BY MOUTH EVERY MORNING ON AN EMPTY STOMACH. Omeprazole 20 MG Capsule Delayed Release TAKE ONE CAPSULE BY MOUTH EVERY MORNING 30 MINUTES BEFORE MORNING MEAL Albuterol Sulfate HFA 108 (90 Base) MCG/ACT Aerosol Solution USE 1 PUFF BY MOUTH EVERY 4 HOURS NEEDED Taking Aspirin 81 81 MG Tablet Chewable 1 tablet Orally Once a dayTaking Lisinopril-hydroCHLOROthiazide 10-12.5 MG Tablet TAKE ONE TABLET BY MOUTH EVERY DAY Taking Levothyroxine Sodium 88 MCG Tablet TAKE ONE TABLET BY MOUTH EVERY MORNING ON AN EMPTY STOMACH. Taking Omeprazole 20 MG Capsule Delayed Release TAKE ONE CAPSULE BY MOUTH EVERY MORNING 30 MINUTES BEFORE MORNING MEAL Taking Albuterol Sulfate HFA 108 (90 Base) MCG/ACT Aerosol Solution USE 1 PUFF BY MOUTH EVERY 4 HOURS NEEDED Not-Taking/PRNProAir HFA 108 (90 Base) MCG/ACT Aerosol Solution 1 puff as needed Inhalation every 4 hrsNystatin 235868 UNIT/GM Cream 1 application to affected area Externally Twice a dayAdvair Diskus 500-50 MCG/DOSE Aerosol Powder Breath Activated INHALE ONE PUFF(S) TWICE A DAY Inhalation Twice a dayMedication List reviewed and reconciled with the patientNot-Taking/PRN ProAir HFA 108 (90 Base) MCG/ACT Aerosol Solution 1 puff as needed Inhalation every 4 hrsNot-Taking/PRN Nystatin 708107 UNIT/GM Cream 1 application to affected area Externally Twice a dayNot- Taking/PRN Advair Diskus 500-50 MCG/DOSE Aerosol Powder Breath Activated INHALE ONE PUFF(S) TWICE A DAY Inhalation Twice a dayMedication List reviewed and reconciled with the patient * Allergies:?N.K.D.A.yes[Aller gies Verified] Objective: * Vitals:?Ht: 61.75, Wt:186, B TN:34.29, BP:132/78 weight is up 5 pounds since 01-03-24. * ???Past Orders: ???Lab:Lipid Panel (Order Da te - 07/06/2024) (Collection Date - 07/06/2024) ? Value Reference Range ?Triglycerides 89 <150 - mg/dL ?Cholesterol 262 H <200 - m g/dL ?LDL Cholesterol Calculated 180 H <100 - mg/dL ?HDL Cholesterol 65 >40 - mg/dL ???Lab:TSH reflex Free T4 (O rder Date - 07/06/2024) (Collection Date - 07/06/2024) ? Value Reference Range ?TSH reflex Free T4 1.34 0 .32-4.0 - uIU/mL * Examination: ???General Examination: ?GENERAL APPEARANCE:?alert, well hydrated, in no distress.?SKIN:?good turgor.?HEART:?regular rate and rhythm , no murmurs, rubs, gallops.?LUNGS:?no wheezes, rales, rhonchi , good air movement , clear to auscultation bilaterally.? Assessment: * Assessment: 1.?Ankle tendinitis - M77.50 (Primary)?2.?Pure hypercholesterolemia - E78.00?3.?Fatty liver - K76.0? Plan: * Treatment: 2.?Pure hypercholesterolemia ? Notes: not wanting to use meds. will try diet control for 6 months, will continue to monitor?? 3.?Fatty liver? Notes: referral back to dr ely? Referral To:Aashish Ely??Gastroenterology ?Reason:fatty liver * Procedure Codes:? * * Sign off status: Completed true * Provider:?Hal Castelan MD Date:?0 07/09/2024 Generated for Erica tucker/Ronan/Mikeitting on:?11/15/2024 12:29 PM EDT History and Physical Notes * HPI (History of Present Illness) Category Sub-Category Detail Notes Category Not es Symptom(s) patient is a 63 yo female here for 6 month follow up visit. . still having tendonitis in ankle had ct and mri Examination Category Sub-Category Detail Notes Category Not es General Examination GENERAL APPEARANCE: alert, w ell hydrated, in no distress HEART: regular rate and rhy thm , no murmurs, rubs, gallops LUNGS: no wheezes, rales, r honchi , good air movement , clear to auscultation bilaterally SKIN: good turgor Consultation Request Notes Referral Date Referring Provider Referred Provider Not es 07/09/2024 Hal Castelan Robert fatty live r
--- OUTSIDE RECORDS SUMMARY | 2024-11-15 12:29 | XMS_ITS | Patient Health Record ---
Author Organization [facility] Address [address] [place] [address] Care Team Providers Care Integrity Specialist Name Role Phone Annelise WONG, Hal Primary Care Provider Aashish Nunez [phone] Allergies Allergen (clinical drug ingredient) Drug/Non Drug Allergy documented on EMR Reaction Allergy Type Onset Date Status morphine Morphine heart pulpitations Drug Allergy Active Reason For Referral No Information Medications Medication SIG (Take, Route, Frequency, Duration) Notes Start Date End Date Status Albuterol Sulfate HFA 108 (90 Base) MCG/ACT INHALE ONE PUFF BY MOUTH EVERY 4 HOURS NEEDED Inhalation for 90 Active Lisinopril-hydroCHLOROthiazi de 10-12.5 MG Oral for 30 Active Omeprazole 20 MG TAKE ONE CAPSULE BY MOUTH EVERY MORNING 30 MINUTES BEFORE MORNING MEAL Oral Active Levothyroxine Sodium Active Multivitamin Adult - 1 tablet Orally Onc e a day for 30 day(s) Active Aspirin 81 81 MG 1 tablet Orally Once a day for 30 day(s) Active Immunizations Vaccine Route Administration Date Status Comme nts Influenza Unknown 03/27/2021 Administered Influenza Unknown 04/19/2023 Administered Problems Problem Type SNOMED Code ICD Code Onset Dates Problem Status W/U Status Risk Notes Problem 914687899 Colon cancer screening (Z12.11) Active confirmed Problem 173047387 Encounter for screening for malignant neoplasm of colon (Z12.11) Active confirmed Problem Diverticular disease of colon (541834301) Diverticulosis of large intestine without perforation or abscess without bleeding (K57.30) Active confirmed Problem Nausea (605190599) Nausea (R11.0) Active confir med Problem Gastroesophageal reflux disease (351949276) Gastroesophageal reflux disease (K21.9) Active confirmed Problem 018616966384803 Preprocedural examination (Z01.818) Active confirmed Problem Fatty liver (132409838) Fatty liver (K76.0) Active confirmed Problem Gastritis (6098907) Gastritis (K29.70) Active c onfirmed Problem 590770602 RUQ abdominal pa in (R10.11) Active confirmed Problem Diaphragmatic hernia (55021741) Hernia, hiatal (K44.9) Active confirmed Vital Signs Temperature 97.3 degrees Fahrenheit 02/23/2024 Blood pressure diastolic 77 mm Hg 11/06/2024 Height 62 in 11/06/2024 Blood pressure systolic 111 mm Hg 11/06/2024 Weight 183 lbs 11/06/2024 BMI 33.47 kg/m2 11/06/2024 Encounters Encounter Location Date Provider Diagnosis [facility] [address] [place] [address] 11/06/2024 Aashish Dimas Encounter for screen ing for malignant neoplasm of colon Z12.11 ; Nausea R11.0 and Fatty liver K76.0 [facility] [address] [place] [address] 02/23/2024 Aashish Dimas Encounter for screen ing for malignant neoplasm of colon Z12.11 ; Nausea R11.0 ; Gastroesophageal reflux disease K21.9 and Hernia, hiatal K44.9 Assessments Encounter Date Diagnosis (ICD Code) Assessment Notes Treatment Notes Treatment Clinical Notes Section Notes 11/06/2024 Encounter for screening for malignant neoplasm of colon (ICD-10 - Z12.11) Overall, Vandana appears quite well. She is not having any new or worrisome GI complaints. It does appear that the omeprazole is continue to help minimize her symptoms of nausea and I did advise her to continue that. We did review that reflux was the probable main contributing factor to the nausea. We did review the need for a follow-up screening colonoscopy in 2033 as well. In regard to the reported fatty liver on the ultrasound from 2 years ago, she does not show any signs nor have any symptoms of liver disease. Her normal liver profile from just last year is also very reassuring. We did review that the fatty liver seen on the ultrasound is certainly in relation to her weight and elevated cholesterol. However, it does not seem to be causing any adverse effects on her liver at this time. Nonetheless, I did advise her that it would be important both for the liver and her overall health in general, to try to lose weight and improve her cholesterol levels. I did advise her to speak with you about the latter issue. I advised her that I do not think she needs any workup for the fatty liver such as a liver biopsy. However, I did advise her that I will check a liver profile as it has been almost a year since her last liver profile, and we will also check a liver fibrosis score. I do not think she needs repeat imaging of her liver at this time. I advised her that it is important to follow patients with fatty liver to be sure there is no silent progression that could increase risk for liver disease going forward. I will plan to see her in 1 year for a follow-up visit. If by chance her liver enzymes begin to climb significantly we could always reassess things with potential need for liver biopsy and treatment for the fatty liver. However, hopefully by keeping the risk factors of her weight and cholesterol level in a good range will help to prevent any long-term adverse effects of the fatty liver. Vandana was comfortable with this plan. Thank you again for allowing me to participate in Vandana's care. I shall continue to keep you advised of her progress.. 11/06/2024 Nausea (ICD-10 - R11.0) Overall, Vandana appears quite well. She is not having any new or worrisome GI complaints. It does appear that the omeprazole is continue to help minimize her symptoms of nausea and I did advise her to continue that. We did review that reflux was the probable main contributing factor to the nausea. We did review the need for a follow-up screening colonoscopy in 2033 as well. In regard to the reported fatty liver on the ultrasound from 2 years ago, she does not show any signs nor have any symptoms of liver disease. Her normal liver profile from just last year is also very reassuring. We did review that the fatty liver seen on the ultrasound is certainly in relation to her weight and elevated cholesterol. However, it does not seem to be causing any adverse effects on her liver at this time. Nonetheless, I did advise her that it would be important both for the liver and her overall health in general, to try to lose weight and improve her cholesterol levels. I did advise her to speak with you about the latter issue. I advised her that I do not think she needs any workup for the fatty liver such as a liver biopsy. However, I did advise her that I will check a liver profile as it has been almost a year since her last liver profile, and we will also check a liver fibrosis score. I do not think she needs repeat imaging of her liver at this time. I advised her that it is important to follow patients with fatty liver to be sure there is no silent progression that could increase risk for liver disease going forward. I will plan to see her in 1 year for a follow-up visit. If by chance her liver enzymes begin to climb significantly we could always reassess things with potential need for liver biopsy and treatment for the fatty liver. However, hopefully by keeping the risk factors of her weight and cholesterol level in a good range will help to prevent any long-term adverse effects of the fatty liver. Vandana was comfortable with this plan. Thank you again for allowing me to participate in Vandana's care. I shall continue to keep you advised of her progress.. 02/23/2024 Encounter for screening for malignant neoplasm of colon (ICD-10 - Z12.11) Repeat colonoscopy in 2033 Overall, Vandana appears quite well. We did review her procedure result in detail. In regard to the colonoscopy I did advise her need for a followup colonoscopy in 2033 for further screening given the finding of only a hyperplastic polyp on this year's colonoscopy. In regard to the ongoing nausea I still suspect she is having some nocturnal reflux since her symptoms of nausea are only in the morning and then go away when she takes her omeprazole and the day progresses. As such, I again advised her to switch the omeprazole to late afternoon or early evening to see if that gives her better control of any acid reflux occurring at night. I also advised her to take some TUMS at bedtime and to be sure not to eat for at least several hours before lying down. I advised her to call me within several weeks to let me know how she is doing and if the symptoms of the morning nausea persist I would then plan to increase omeprazole to 40 mg daily. We did discuss the potential for hiatal hernia surgery but at this point I hold off on that and see how things go on the medication. We did review that obviously weight and diet play a major role in her symptoms. Vandana was comfortable with this plan. Thank you again for allowing me to participate in Vandana's care. I shall continue to keep you advised of her progress. 02/23/2024 Nausea (ICD-10 - R11.0) Switch the time of the omeprazole to late afternoon or early evening to see if that works better for the morning nausea. Take 2 or 3 TUMS at bedtime as well. Don't eat for 3-4 hours before lying down at night. Call me if things remain a problem and we can try to increase the dose of the omeprazole from 20mg to 40mg. Overall, Vandana appears quite well. We did review her procedure result in detail. In regard to the colonoscopy I did advise her need for a followup colonoscopy in 2033 for further screening given the finding of only a hyperplastic polyp on this year's colonoscopy. In regard to the ongoing nausea I still suspect she is having some nocturnal reflux since her symptoms of nausea are only in the morning and then go away when she takes her omeprazole and the day progresses. As such, I again advised her to switch the omeprazole to late afternoon or early evening to see if that gives her better control of any acid reflux occurring at night. I also advised her to take some TUMS at bedtime and to be sure not to eat for at least several hours before lying down. I advised her to call me within several weeks to let me know how she is doing and if the symptoms of the morning nausea persist I would then plan to increase omeprazole to 40 mg daily. We did discuss the potential for hiatal hernia surgery but at this point I hold off on that and see how things go on the medication. We did review that obviously weight and diet play a major role in her symptoms. Vandana was comfortable with this plan. Thank you again for allowing me to participate in Vandana's care. I shall continue to keep you advised of her progress. 11/06/2024 Fatty liver (ICD-10 - K76.0) Speak with Dr. Castelan about the elevated cholesterol. Losing weight, watching diet,and keeping the cholesterol down would help with the fatty liver. Overall, Vandana appears quite well. She is not having any new or worrisome GI complaints. It does appear that the omeprazole is continue to help minimize her symptoms of nausea and I did advise her to continue that. We did review that reflux was the probable main contributing factor to the nausea. We did review the need for a follow-up screening colonoscopy in 2033 as well. In regard to the reported fatty liver on the ultrasound from 2 years ago, she does not show any signs nor have any symptoms of liver disease. Her normal liver profile from just last year is also very reassuring. We did review that the fatty liver seen on the ultrasound is certainly in relation to her weight and elevated cholesterol. However, it does not seem to be causing any adverse effects on her liver at this time. Nonetheless, I did advise her that it would be important both for the liver and her overall health in general, to try to lose weight and improve her cholesterol levels. I did advise her to speak with you about the latter issue. I advised her that I do not think she needs any workup for the fatty liver such as a liver biopsy. However, I did advise her that I will check a liver profile as it has been almost a year since her last liver profile, and we will also check a liver fibrosis score. I do not think she needs repeat imaging of her liver at this time. I advised her that it is important to follow patients with fatty liver to be sure there is no silent progression that could increase risk for liver disease going forward. I will plan to see her in 1 year for a follow-up visit. If by chance her liver enzymes begin to climb significantly we could always reassess things with potential need for liver biopsy and treatment for the fatty liver. However, hopefully by keeping the risk factors of her weight and cholesterol level in a good range will help to prevent any long-term adverse effects of the fatty liver. Vandana was comfortable with this plan. Thank you again for allowing me to participate in Vandana's care. I shall continue to keep you advised of her progress.. 02/23/2024 Gastroesophageal reflux disease (ICD-10 - K21.9) Overall, Vandana appears quite well. We did review her procedure result in detail. In regard to the colonoscopy I did advise her need for a followup colonoscopy in 2033 for further screening given the finding of only a hyperplastic polyp on this year's colonoscopy. In regard to the ongoing nausea I still suspect she is having some nocturnal reflux since her symptoms of nausea are only in the morning and then go away when she takes her omeprazole and the day progresses. As such, I again advised her to switch the omeprazole to late afternoon or early evening to see if that gives her better control of any acid reflux occurring at night. I also advised her to take some TUMS at bedtime and to be sure not to eat for at least several hours before lying down. I advised her to call me within several weeks to let me know how she is doing and if the symptoms of the morning nausea persist I would then plan to increase omeprazole to 40 mg daily. We did discuss the potential for hiatal hernia surgery but at this point I hold off on that and see how things go on the medication. We did review that obviously weight and diet play a major role in her symptoms. Vandana was comfortable with this plan. Thank you again for allowing me to participate in Vandana's care. I shall continue to keep you advised of her progress. 02/23/2024 Hernia, hiatal (ICD-10 - K44.9) Overall, Vandana appears quite well. We did review her procedure result in detail. In regard to the colonoscopy I did advise her need for a followup colonoscopy in 2033 for further screening given the finding of only a hyperplastic polyp on this year's colonoscopy. In regard to the ongoing nausea I still suspect she is having some nocturnal reflux since her symptoms of nausea are only in the morning and then go away when she takes her omeprazole and the day progresses. As such, I again advised her to switch the omeprazole to late afternoon or early evening to see if that gives her better control of any acid reflux occurring at night. I also advised her to take some TUMS at bedtime and to be sure not to eat for at least several hours before lying down. I advised her to call me within several weeks to let me know how she is doing and if the symptoms of the morning nausea persist I would then plan to increase omeprazole to 40 mg daily. We did discuss the potential for hiatal hernia surgery but at this point I hold off on that and see how things go on the medication. We did review that obviously weight and diet play a major role in her symptoms. Vandana was comfortable with this plan. Thank you again for allowing me to participate in Vandana's care. I shall continue to keep you advised of her progress. Plan Of Treatment Pending Test Test Name Order Date LIVER PROFILE 11/06/2024 Liver Fibrosis Pnl 11/06/2024 Future Test Test Name Order Date COLONOSCOPY 09/27/2012 COLONOSCOPY 04/28/2023 Next Appt Details Provider Name:Aashish Dimas , 11/07/2025 09:20:00 AM, [address], [address], [place], [address], Insurance Providers Payer Name Payer Address Payer Phone Subscriber Number Group Number Insured Name Patient Relationship to Insured Coverage Start Date Coverage End Date [facility] [address] [place] [address] [id number] VANDANA MARTINEZ Self - patient is the insured Medical (General) History Medical History History ICD Code Hypothyroidism Denies NV,DM,CVA,renal disease GERD in 2008- 2009-had an UG I that showed a HH and reflux-lost 60# and all symptoms have resolved-on no medicines Asthma-exercised induced Kidney stones-ESWL Negative screening colonoscopy in 11/2012 ? TIA with right-sided weakn ess--having a TIA w/u with a neurologist as of the 06/02/2021 OV---found to have a PFO and closed via cardiac cath at [facility] Screening colonoscopy in Jul with only a hyperplastic polyp removed Upper endoscopy in July of 2023 revealed a moderate sized hiatal hernia, but no evidence of any esophagitis, Marlow's esophagus, ulcer disease, nor H. pylori Surgical History Surgery Date(Month/Year) D&C Tonsils
--- OUTSIDE RECORDS SUMMARY | 2024-11-15 12:29 | XMS_ITS | Patient Health Record ---
Author Organization Hal Castelan MD Address [address] [place] [phone] Care Team Providers Care Librarian Special Library Name Role Phone Hal Castelan Primary Care Provider Allergies No Known Allergies Results Component Value Reference Range Notes Complete Blood Count Auto Di ff Reviewed date:12/27/2023 04:26:46 PM Interpretation: Performing Lab:[facility], [address] [place] [phone] Notes/Report: White Blood Count 4.9 4.8-10.8 X10*3/uL Red Blood Count 4.06 4.20-5.50 X10*6/uL Hemoglobin 13.4 12.0-16.0 g/dl Hematocrit 39.8 37.0-47.0 % Mean Corpuscular Volume 98.0 80.0-98.0 fL Mean Corpuscular Hemoglobin 33.0 27.0-33.0 pg Mean Corpuscular HGB Conc 33.7 31.0-35.0 g/dl Red Cell Distribution Width 12.0 11.0-16.0 % Platelet Count 375 160-400 X10*3/uL Mean Platelet Volume 9.7 9.4-12.3 fL Neutrophils Percent Auto 57.5 45-73 % Imm Gran Pct Auto 0.2 0.0-0.4 % Lymphocytes Percent Auto 30.5 20-40 % Monocytes Percent Auto 7.3 2-11 % Eosinophils Percent Auto 3.7 0-4 % Basophils Percent Auto 0.8 0-2 % NRBC Pct Auto 0.0 0.0-0.2 /100WBC Neutrophils Absolute Auto 2.8 2.0-8.3 x10*3/u L Imm Gran Abs Auto 0.01 0.00-0.03 X10*3/uL Lymphocytes Absolute Auto 1.5 1.2-4.9 X10*3/u L Monocytes Absolute Auto 0.4 0.1-1.2 X10*3/uL Eosinophils Absolute Auto 0.2 0.0-0.4 X10*3/u L Basophils Absolute Auto 0.0 0.0-0.2 X10*3/uL NRBC Abs Auto 0.000 0.0-0.012 X10*3/uL Lipid Panel Reviewed date:12/27/2023 02:53:43 PM Interpretation: Performing Lab:[facility], [address] [place] [phone] Notes/Report: Triglycerides 83 <150 mg/dL Desirable Triglyceride: less than 150 mg/dL Borderline High Triglyceride 150-199 mg/dL High Triglyceride: 200-499 mg/dL Very High Triglyceride: greater than or equal to 5OO mg/dL Cholesterol 240 <200 mg/dL Desirable Cholesterol: less than 200 mg/dL Borderline High Cholesterol: 200-239 mg/dL High Cholesterol: greater than 239 mg/dL LDL Cholesterol Calculated 161 <100 mg/dL Desirable LDL: less than 100 mg/dL Near Optimal/Above Optimal LDL: 110-129 mg/dL Borderline High LDL: 130-159 mg/dL High LDL: 160-189 mg/dL Very High LDL: greater than or equal to 190 mg/dL HDL Cholesterol 63 >40 mg/dL Desirable HDL: greater than 40 mg/dL Note: This HDL assay may give artificially low results in patients with liver disease. Vitamin D 25-OH Total Reviewed date:12/27/2023 04:19:56 PM Interpretation: Performing Lab:[facility], [address] [place] [phone] Notes/Report: Vitamin D 25-OH Total 33.1 >30 ng/mL Health Based Reference Values* < 20 ng/mL Deficient 20-30 ng/mL Insufficient > 30 ng/mL Sufficient *Natalie GUERRA. N Engl J Med. 2007;357:266-280 Care must be taken in interpreting Vitamin D results from different laboratories and methodologies. Published data demonstrated that results from patients undergoing hemodialysis may show a negative bias when tested with various automated 25-OH vitamin D assays when compared to LC-MS/MS. When testing samples from patients whose predominant form of Vitamin D is Vitamin D2, such as patients receiving Vitamin D2 supplementation, results that are subtherapeutic should be confirmed with another method such as LC-MS/MS. TSH reflex Free T4 Reviewed date:12/27/2023 02:53:34 PM Interpretation: Performing Lab:[facility], [address] [place] [phone] Notes/Report: TSH reflex Free T4 0.29 0.32-4.0 uIU/mL Hemoglobin A1c Reviewed date:12/27/2023 12:39:17 PM Interpretation: Performing Lab:[facility], [address] [place] [phone] Notes/Report: Hemoglobin A1c % 5.6 <6.0 % Hemoglobin A1C Reference Range Adults: 4.8 - 6.0 % Non diabetic: < 6.0 % Goal: < 7.0 % Additional Action Suggested: > 8.0 % Note: Hemoglobin A1c results are invalid for patients with abnormal amounts of HbF. Blood transfusions may impact the HbA1c concentration in the patient sample. Estimated Average Glucose 114 eAG = Estimated average glucose which is %A1C expressed as average glucose, using the formula of the [id number]-[id number] Average Glucose study (ADAG), Diabetes Care, Vol.31,#8, Jan. 2007 Lipid Panel Reviewed date:07/06/2024 05:14:32 PM Interpretation: Performing Lab:[address] [phone] Notes/Report: Triglycerides 89 <150 mg/dL Desirable Triglyceride: less than 150 mg/dL Borderline High Triglyceride 150-199 mg/dL High Triglyceride: 200-499 mg/dL Very High Triglyceride: greater than or equal to 5OO mg/dL Cholesterol 262 <200 mg/dL Desirable Cholesterol: less than 200 mg/dL Borderline High Cholesterol: 200-239 mg/dL High Cholesterol: greater than 239 mg/dL LDL Cholesterol Calculated 180 <100 mg/dL Desirable LDL: less than 100 mg/dL Near Optimal/Above Optimal LDL: 110-129 mg/dL Borderline High LDL: 130-159 mg/dL High LDL: 160-189 mg/dL Very High LDL: greater than or equal to 190 mg/dL HDL Cholesterol 65 >40 mg/dL Desirable HDL: greater than 40 mg/dL Note: This HDL assay may give artificially low results in patients with liver disease. TSH reflex Free T4 Reviewed date:07/06/2024 05:13:46 PM Interpretation: Performing Lab:[address] [phone] Notes/Report: TSH reflex Free T4 1.34 0.32-4.0 uIU/mL MAMMOGRAM DIGITAL BILATERAL SCREEN Reviewed date:12/06/2023 01:41:33 PM Interpretation:Negative Performing Lab: Notes/Report: Negative Comprehensive Met. Panel Reviewed date:12/27/2023 04:23:54 PM Interpretation: Performing Lab:[address] [phone] Notes/Report: Sodium 140 135-145 mmol/L Potassium 4.1 3.3-5.1 mmol/L Chloride 106 96-108 mmol/L Carbon Dioxide 26 22-29 mmol/L Anion Gap 12 12-20 Blood Urea Nitrogen 13 9-16 mg/dL Creatinine 0.86 0.5-1.4 mg/dL Estimated Glomerular Filt Rate > 60 NOTE: For -Azerbaij[place] individuals, multiply the result by 1.210. Chronic Kidney Disease: Estimated GFR < 60 mL/min/1.73m2 Severe Kidney Disease: Estimated GFR < 15 mL/min/1.73m2 Glucose Random 100 60-115 mg/dL Calcium 9.6 8.4-10.2 mg/dL Bilirubin Total 0.7 0.0-1.0 mg/dL Aspartate Amino Transferase 23 5-31 U/L Alanine Aminotransferase 27 0-31 U/L Total Protein 6.7 6.5-8.0 g/dL Albumin Level 4.0 3.5-5.0 g/dL Alkaline Phosphatase 84 39-117 U/L Free T4 (Free Thyroxine) Reviewed date:12/27/2023 02:56:34 PM Interpretation: Performing Lab:[facility], [address] [place] [phone] Notes/Report: Free T4 (Free Thyroxine) 1.00 0.71-1.85 ng/dL Zeynep Perkins Reviewed date:12/27/2023 12:32:33 PM Interpretation: Performing Lab:[address] [phone] Notes/Report: Zeynep Perkins See Note Specimen held untested for 24 hours; Call to request Chemistry testing. Zeynep Perkins Reviewed date:07/06/2024 05:14:50 PM Interpretation: Performing Lab:[facility], [address] [place] [phone] Notes/Report: Zeynep Perkins See Note Specimen held untested for 24 hours; Call to request Chemistry testing. Reason For Referral Reason fatty liver Diagnosis [...] Referral Priority Routine Referral Appointment Date 11/06/2024 Medications Medication SIG (Take, Route, Frequency, Duration) Notes Start Date End Date Status Aspirin 81 81 MG 1 tablet Orally Once a day for 30 day(s) 04/28/2021 Active Levothyroxine Sodium 88 MCG TAKE ONE TABLET BY MOUTH EVERY MORNING ON AN EMPTY STOMACH. Active Nystatin 592350 UNIT/GM 1 application to affected area Externally Twice a day for 30 days 01/19/2019 Not-Taking Advair Diskus 500-50 MCG/DOSE INHALE ONE PUFF(S) TWICE A DAY Inhalation Twice a day for 30 Not-Taking Lisinopril-hydroCHLOROthi azide 10-12.5 MG TAKE ONE TABLET BY MOUTH EVERY DAY for 30 Active ProAir HFA 108 (90 Base) MCG/ACT 1 puff as needed Inhalation every 4 hrs for 30 days Not-Taking Omeprazole 20 MG TAKE ONE CAPSULE BY MOUTH EVERY MORNING 30 MINUTES BEFORE MORNING MEAL Active Albuterol Sulfate HFA 108 (90 Base) MCG/ACT USE 1 PUFF BY MOUTH EVERY 4 HOURS NEEDED for 25 Active Immunizations Vaccine Route Administration Date Status Comme nts Flu Vaccine Unknown 05/05/2012 Administered PPSV23 (Pnemovax) IM Intramuscular 11/22/2014 Administered Fluarix Quadrivalent IM Intramuscular 04/28/2018 Administe red Fluarix Quadrivalent IM Intramuscular 06/01/2019 Administe red PPSV23 (Pnemovax) IM Intramuscular 02/18/2020 Administered Fluarix Quadrivalent IM Intramuscular 03/12/2020 Administe red Fluarix Quadrivalent IM Intramuscular 03/19/2021 Administe red SARS-COV-2 Pfizer Unknown 07/22/2020 Administered SARS-COV-2 Pfizer Unknown 08/06/2020 Administered SARS-COV-2 Pfizer Unknown 04/07/2021 Administered Fluarix Quadrivalent IM Intramuscular 03/29/2022 Administe red Fluarix Quadrivalent IM Intramuscular 03/04/2023 Administe red Fluarix Quadrivalent - 150 IM Intramuscular 05/11/2024 Adm inistered Social History Tobacco Use: Social History Observation Description Date Details (start date - stop date) Never Smoker NA - NA Tobacco Use/Smoking Question Answer Notes Patient is a nonsmoker Additional Findings: Tobacco Non-User Cu rrent non-smoker, currently using no form of tobacco Alcohol Screen Question Answer Notes Did you have a drink contain ing alcohol in the past year? Yes How often did you have a dri nk containing alcohol in the past year? 2 to 4 times a month (2 points) How many drinks did you have on a typical day when you were drinking in the past year? 1 or 2 drinks (0 point) How often did you have 6 or more drinks on one occasion in the past year? Never (0 point) Points 2 Interpretation Negative Problems Problem Type SNOMED Code ICD Code Onset Dates Problem Status W/U Status Risk Notes Problem 982467090 TIA (transient ischemic attack) (G45.9) Active confirmed Problem 18568269 Vitamin D defici ency (E55.9) Active confirmed Problem 461470887 Osteopenia (M85.80) Active confirmed Problem 189019471 Acquired hypothyroidism (E03.9) Active confirmed Problem 353945700 Mild intermitten t asthma without complication (J45.20) Active confirmed Problem 5383277 Prediabetes (R73.09) Active confirmed Problem Labile essential hypertension (007808117) Labile hypertension (I10) Active confirmed Problem Migraine with aura (9938573) Migraine with aura and without status migrainosus, not intractable (G43.109) Active confirmed Problem 461031943 Fatty liver (K76.0) Active confirmed Problem 108803881 Pure hypercholesterolemia (E78.00) Active confirmed Problem 947550321 Mild intermitten t asthmatic bronchitis with acute exacerbation (J45.21) Active confirmed Problem Patent foramen o jl (Q21.1) Active confirmed Problem 514452533 Flushing, menopa usal (N95.1) Active confirmed Problem Disorder of tongue (17425971) 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) Active confirmed Problem 299305904 Gastric reflux (K21.9) Active confirm ed Vital Signs Blood pressure diastolic 78 mm Hg 07/09/2024 james ght is up 5 pounds since 01-03-24 Height 61.75 in 07/09/2024 weight is up 5 pounds since 01-03-24 Blood pressure systolic 132 mm Hg 07/09/2024 weig ht is up 5 pounds since 01-03-24 Weight 186 lbs 07/09/2024 weight is up 5 pounds since 01-03-24 BMI 34.29 kg/m2 07/09/2024 weight is up 5 pounds since 01-03-24 Encounters Encounter Location Date Provider Diagnosis Hal Castelan MD [address] [place], [place] [phone] 12/27/2023 Hal Castelan Blood tests for rout ine general physical examination Z00.00 ; Acquired hypothyroidism E03.9 ; Prediabetes R73.09 ; Pure hypercholesterolemia E78.00 ; Vitamin D deficiency E55.9 and Labile hypertension I10 Hal Castelan MD [address] [place] [id number] 05/11/2024 Hal aCstelan Encounter for immuni zation Z23 Hal Castelan MD [address] [place] [id number] 07/06/2024 Hal Castelan Acquired hypothyroid ism E03.9 and Pure hypercholesterolemia E78.00 Hal Castelan MD [address] [id number] 01/03/2024 Hal Castelan Acquired hypothyroid ism E03.9 ; Annual physical exam Z00.00 ; Pure hypercholesterolemia E78.00 ; Labile hypertension I10 ; Mild intermittent asthma without complication J45.20 ; Vitamin D deficiency E55.9 ; Gastric reflux K21.9 and Encounter for screening for depression Z13.31 Hal Castelan MD [address] [id number] 07/09/2024 Hal Castelan Ankle tendinitis M77 .50 ; Pure hypercholesterolemia E78.00 and Fatty liver K76.0 Hal Castelan MD [address] [place] [address] [phone] 03/29/2024 Hal Castelan Assessments Encounter Date Diagnosis (ICD Code) Assessment Notes Treatment Notes Treatment Clinical Notes Section Notes 12/27/2023 [address] tests for [address] ine general physical examination (ICD-10 - Z00.00) 12/27/2023 Acquired hypothyroid ism (ICD-10 - E03.9) 05/11/2024 Encounter for immunization (ICD-10 - Z23) 07/06/2024 Acquired hypothyroid ism (ICD-10 - E03.9) 07/06/2024 Pure hypercholesterolemia (ICD-10 - E78.00) 01/03/2024 Acquired hypothyroid ism (ICD-10 - E03.9) stable, will continue current regiment 01/03/2024 Annual physical exam (ICD-10 - Z00.00) labs reviewed and discussed with patent 07/09/2024 Ankle tendinitis (IC D-10 - M77.50) need notes from [facility]/ request will be sent for records 07/09/2024 Pure hypercholesterolemia (ICD-10 - E78.00) not wanting to use meds. will try diet control for 6 months, will continue to monitor 12/27/2023 Prediabetes (ICD-10 - R73.09) 01/03/2024 Pure hypercholesterolemia (ICD-10 - E78.00) encouraged weight watchers again, will continue current regiment 07/09/2024 Fatty liver (ICD-10 - K76.0) referral back to dr ely 12/27/2023 Pure hypercholesterolemia (ICD-10 - E78.00) 01/03/2024 Labile hypertension (ICD-10 - I10) doing well at present, will continue current regiment 12/27/2023 Vitamin D deficiency (ICD-10 - E55.9) 01/03/2024 Mild intermittent as thma without complication (ICD-10 - J45.20) stable, no issues, will continue current regiment 12/27/2023 Labile hypertension (ICD-10 - I10) 01/03/2024 Vitamin D deficiency (ICD-10 - E55.9) 01/03/2024 Gastric reflux (ICD- 10 - K21.9) stable, will continue current regiment 01/03/2024 Encounter for screen ing for depression (ICD-10 - Z13.31) negative screen Plan Of Treatment Pending Test Test Name Order Date Electrocardiogram (EKG) 12/12/2015 Electrocardiogram (EKG) 12/24/2016 MRI BRAIN NO CONTRAST 04/28/2021 XR GI SERIES 05/17/2023 BONE DENSITY DEXA 02/05/2021 US CAROTID BILATERAL DOPPLER 05/05/2021 Holter monitor 07/31/2021 CTA HEAD AND NECK FOR STROKE 09/24/2021 CA echo transthoracic complete ECG 30 day event monitor 05/05/2021 US abdomen complete 04/12/2023 BONE DENSITY DEXA 01/19/2019 Next Appt Details Provider Name:Hal mercedes, 12/31/2024 07:30:00 AM, [address] [place] [address], [address], [place], [place], [phone], Provider Name:Hal mercedes, 01/07/2025 08:30:00 AM, [address] [place] [address], [address], [place], [place], [phone], Insurance Providers Payer Name Payer Address Payer Phone Subscriber Number Group Number Insured Name Patient Relationship to Insured Coverage Start Date Coverage End Date [employer] [address] [place], [place] [phone] [id number] Marbella Caiyl Self - patient is the insured Medical (General) History Medical History History ICD Code colonoscopy 11/27/12 - repeat 10 years08/22 colonoscopy repeat 10y [facility] due in 2015 for pap
--- OUTSIDE RECORDS SUMMARY | 2024-11-15 12:29 | XMS_ITS ---
Author Organization Hal Castelan MD Address [address] [place] [phone] Care Team Providers Care Shampooer Name Role Phone Hal Castelan Primary Care Provider [phone] REASON FOR VISIT flu vac Immunizations Vaccine Route Administration Date Status Comme nts Fluarix Quadrivalent - 150 IM Intramuscular 05/11/2024 Adm inistered Encounters Encounter Location Date Provider Diagnosis Hal Castelan MD [address] [place] [phone] 05/11/2024 Hal Castelan Encounter for immunization Z23 Assessments Encounter Date Diagnosis (ICD Code) Assessment Notes Treatment Notes Treatment Clinical Notes Section Notes 05/11/2024 Encounter for immunization (ICD-10 - Z23) Plan Of Treatment Next Appt Details Provider Name:Hal mercedes, 12/31/2024 07:30:00 AM, [address] [facility], [address], [place], [place], [phone], Provider Name:Hal Ponce ier, 01/07/2025 08:30:00 AM, [address] [facility], [address], [place], [place], [phone], Progress Notes * Vandana MARTINEZ ADOB:[birth year] (64 yo F)Acc No.[id number]:05/11/2024 Progress Note Patient:?Vandana MARTINEZ Provider:?Hal Castelan MD :1960???Age:63 Y???Sex:Female D ate:05/11/2024 Address:[address] [place], [place] [phone] Subjective: * Chief Complaints: * ???1. Flu vac. * Medical History:? Objective: * Vitals:? Assessment: * Assessment: 1.?Encounter for immunizatio n - Z23 (Primary)??? Plan: * Treatment: * Immunizations:? Fluarix Quadrivalent - 150 : 0.5 mL (Dose No:1) (Route: Intramuscular) given by Regine Edwards , Office Staff on Left Deltoid * Procedure Codes:?11633 FLU V ACCINE NO PRESERV 3 & >, 45623 IMMUNIZATION ADMIN * * The named appointment provid er may or may not be the originator of this progress note, and it is not deemed complete until electronically signed by the appointment provider. Sign off status: Pending * Provider:?Hal Castelan MD Date:?07/11/2023 Generated for Erica tucker/Ronan/eTransmitting on:?11/15/2024 12:29 PM EDT
--- OUTSIDE RECORDS SUMMARY | 2024-11-15 12:29 | XMS_ITS ---
Author Organization Hal Castelan MD Address [address] [place] [phone] Care Team Providers Care Stave Bolt Equalizer Name Role Phone Hal Castelan Primary Care Provider [phone] Results Component Value Reference Range Notes Lipid Panel Reviewed date:07/06/2024 05:14:32 PM Interpretation: Performing Lab:[facility], [address] [place] [phone] Notes/Report: Triglycerides 89 <150 mg/dL Desirable Triglyceride: [...] T4 Reviewed date:07/06/2024 05:13:46 PM Interpretation: Performing Lab:[facility], [address] [place] [phone] Notes/Report: TSH reflex Free T4 1.34 0.32-4.0 uIU/mL REASON FOR VISIT TSH fasting lipids Encounters Encounter Location Date Provider Diagnosis Hal Castelan MD [address] [place] [phone] 07/06/2024 Hal Castelan Acquired hypothyroid ism E03.9 and Pure hypercholesterolemia E78.00 Assessments Encounter Date Diagnosis (ICD Code) Assessment Notes Treatment Notes Treatment Clinical Notes Section Notes 07/06/2024 Acquired hypothyroid ism (ICD-10 - E03.9) 07/06/2024 Pure hypercholesterolemia (ICD-10 - E78.00) Plan Of Treatment Next Appt Details Provider Name:Hal mercedes, 12/31/2024 07:30:00 AM, [address] [place] [address], [address], [phone], Provider Name:Hal mercedes, 01/07/2025 08:30:00 AM, [address] [place] [address], [address] [facility], [place], [place], [phone], Progress Notes * Vandana MARTINEZ ADOB:[birth year] (64 yo F)Acc No.[id number]:07/06/2024 Progress Note Patient:?Vandana MARTINEZ Provider:?Hal Castelan MD :1960???Age:63 Y???Sex:Female D ate:07/06/2024 Address:[address] [facility] Subjective: * Chief Complaints: * ???1. TSH fasting lipids. * Medical History:? Objective: * Vitals:? Assessment: * Assessment: 1.?Acquired hypothyroidism - E03.9 (Primary)???2.?Pure hypercholesterolemia - E78.00??? Plan: * Treatment: 2.?Pure hypercholesterolemia ?LAB: Lipid Panel (Collection Date & Time - 07/06/2024 07:30 AM) * Procedure Codes:?01540 VENIP UNCT, ROUTINE* * * The named appointment provid er may or may not be the originator of this progress note, and it is not deemed complete until electronically signed by the appointment provider. Sign off status: Pending * Provider:?Hal Castelan MD Date:?0 07/06/2024 Generated for Erica tucker/Ronan/Mark on:?11/15/2024 12:28 PM EDT
--- OUTSIDE RECORDS SUMMARY | 2024-11-15 12:29 | XMS_ITS | Clinical Summary ---
Author Organization [facility] Address [address] [place] [address] Care Team Providers Care Telephone Clerk Telegraph Office Name Role Phone Unavailable Primary Care Provider Unavailabl e Social History Tobacco Use Types Packs/Day Years Used Date Smoking Tobacco: Never Assessed Comments Unknown Sex and Gender Information Value Date Recorded Sex Assigned at Not on file Legal Sex Female 6:38 PM EST Gender Identity Not on file Sexual Orientation Not on file Plan of Treatment Health Maintenance Due Date Last Done Comments Hepatitis C Virus Screening 1960 HIV Screening 1974 DTaP/Tdap/Td Vaccines (1 - Tdap) 1980 Pneumococcal Vaccines 50+ (1 of 1 - PCV) 2011 Zoster (Shingles) Vaccine (1 of 2) 2011 COVID-19 Vaccine ( - 2023-2 5 season) 2024 RSV Vaccine 60 years and old er and Patients (1 - 1-dose 75+ series) 2036 Hepatitis B Vaccines Aged Out No long er eligible based on patient's age to complete this topic
--- OUTSIDE RECORDS SUMMARY | 2024-11-15 12:29 | XMS_ITS ---
Author Organization [facility] Address [address] [place] [address] Care Team Providers Care Analytical Consultant Name Role Phone Hal Castelan MD Primary Care Provider Aashish Nunez Unavailable [phone] Allergies Allergen (clinical drug ingredient) Drug/Non Drug Allergy documented on EMR Reaction Allergy Type Onset Date Status morphine Morphine heart pulpitations Drug Allergy Active REASON FOR VISIT Patient presents today for gerd, colon polyp Medications Medication SIG (Take, Route, Frequency, Duration) Notes Start Date End Date Status Omeprazole 20 MG TAKE ONE CAPSULE BY MOUTH EVERY MORNING 30 MINUTES BEFORE MORNING MEAL Oral for 30 Active Lisinopril-hydroCHLOROthiazi de 10-12.5 MG Oral for 30 Active Levothyroxine Sodium Active Aspirin 81 81 MG 1 tablet Orally Once a day for 30 day(s) Active Multivitamin Adult - 1 tablet Orally Onc e a day for 30 day(s) Active Albuterol Sulfate HFA 108 (90 Base) MCG/ACT INHALE ONE PUFF BY MOUTH EVERY 4 HOURS NEEDED Inhalation for 90 Active Problems Problem Type SNOMED Code ICD Code Onset Dates Problem Status W/U Status Risk Notes Problem Diaphragmatic hernia (29923035) Hernia, hiatal (K44.9) Active confirmed Problem Nausea (272087444) Nausea (R11.0) Active confirmed Vital Signs Temperature 97.3 degrees Fahrenheit 02/23/20 24 Blood pressure systolic 000 mm Hg 02/23/20 24 Blood pressure diastolic 00 mm Hg 024 Height 62 in 02/23/2024 Weight 184 lb 6 oz lbs 02/23/2024 BMI 33.72 kg/m2 02/23/2024 Encounters Encounter Location Date Provider Diagnosis [facility] [address] [place] [address] 02/23/2024 Aashish Dimas Encounter for screen ing for malignant neoplasm of colon Z12.11 ; Nausea R11.0 ; Gastroesophageal reflux disease K21.9 and Hernia, hiatal K44.9 Assessments Encounter Date Diagnosis (ICD Code) Assessment Notes Treatment Notes Treatment Clinical Notes Section Notes 02/23/2024 Encounter for screening for malignant neoplasm [...] keep you advised of her progress. 02/23/2024 Gastroesophageal reflux disease (ICD-10 - K21.9) [...] advised of her progress. Plan Of Treatment Treatment Notes Assessment Notes Encounter for screening for malignant neoplasm of colon Repeat colonoscopy in 2033 Nausea Switch the time of t he omeprazole to late afternoon or early evening to see if that works better for the morning nausea. Take 2 or 3 TUMS at bedtime as well. Don't eat for 3-4 hours before lying down at night. Call me if things remain a problem and we can try to increase the dose of the omeprazole from 20mg to 40mg. Next Appt Details Follow Up: prn, Reason: Provider Name:Aashish Dmias , 11/07/2025 09:20:00 AM, [address], [address], [place], [address], Progress Notes * VANDANA MARTINEZDOB:1960 (63 yo F)Acc No.[id number]:02/23/2024 Progress Notes Patient:?VANDANA MARTINEZ Provider:?Aashish Dimas MD :1960???Age:63 Y???Sex:Female D ate:02/23/2024 Address:[address] [place] [address] [facility] [id number] Pcp:Hal Castelan MD Subjective: * Chief Complaints: * ???Patient presents today fo r gerd, colon polyp * HPI: ???incontinence:? I saw Vandana in followup today in regard to her ongoing issues with nausea and reflux. ?I last saw Vandana in July, at which time she underwent an upper endoscopy and screening colonoscopy. The colonoscopy revealed only a hyperplastic polyp. The upper endoscopy did reveal a moderate sized hiatal hernia but no esophagitis, Marlow's esophagus, nor other pathology. Gastric biopsies were negative for H. pylori. At that time I did advise her to switch her omeprazole to the evening to see if that'll give her better relief of any nocturnal reflux that would be causing the ongoing morning nausea. However, she did not do that. She does continue to complain of nausea when she awakens. She denies any nocturnal symptoms of heartburn nor any heartburn during the day for that matter. She denies any vomiting, anorexia, early satiety, or dysphagia. Her bowel movements remain regular and without any signs of bleeding. She denies abdominal pain, jaundice, nor weight loss. ?She tries not to eat for 2 or 3 hours before bedtime. Her previous upper GI series in June revealed evidence of reflux as well. ?Of note, according to my records she did have similar symptoms many years ago in regard to nausea and reflux. At that time she had some significant intentional weight loss and that at least transiently corrected her GI symptoms. * ROS:?General/Constitutional:?Change in appetite?denies.?Chills?denies.?Fatigue?denies.?Ophthalmologic:?Patient denies? Negative..?ENT:?Patient denies?Negative..?Respiratory:?Patient denies?No coughing/hemoptysis..?Cardiovascular:?Patient denies? No chest pain/orthopnea..?Gastrointestinal:?Comments?See HPI for details.?Genitourinary:?Patient denies? No dysuria/hematuria..?Musculoskeletal:?Patient denies? No specific arthralgias/myalgias..?Skin:?Patient denies?No rash/pruritus..?Neurologic:?Patient denies? No headaches/seizures..?Psychiatric:?Patient denies?Negative..? * Medical History:? * Surgical History:?Tonsils D& C * Hospitalization/Major Diagno stic Procedure:?No Hospitalization History. * Family History:?Father: dece ased.?Mother: .? Denies family hx. of colorectal cancer. NO family history of liver cancer. * Social History:?Tobacco Use:?Tobacco Use/Smoking?Are you a: nonsmoker.?Drugs/Alcohol:?Alcohol Screen?Points: 4, Interpretation: Positive.?Miscellaneous:?Marital status: . Occupation: [employer]. ???Nonsmoker; 1-2 glasses of wine QD. * Medications:?TakingMultivita min Adult - Tablet 1 tablet Orally Once a dayAspirin 81 81 MG Tablet Chewable 1 tablet Orally Once a dayLevothyroxine Sodium Albuterol Sulfate HFA 108 (90 Base) MCG/ACT Aerosol Solution INHALE ONE PUFF BY MOUTH EVERY 4 HOURS NEEDED Inhalation Lisinopril-hydroCHLOROthiazide 10-12.5 MG Tablet Oral Omeprazole 20 MG Capsule Delayed Release TAKE ONE CAPSULE BY MOUTH EVERY MORNING 30 MINUTES BEFORE MORNING MEAL Oral Medication List reviewed and reconciled with the patientTaking Multivitamin Adult - Tablet 1 tablet Orally Once a dayTaking Aspirin 81 81 MG Tablet Chewable 1 tablet Orally Once a dayTaking Levothyroxine Sodium Taking Albuterol Sulfate HFA 108 (90 Base) MCG/ACT Aerosol Solution INHALE ONE PUFF BY MOUTH EVERY 4 HOURS NEEDED Inhalation Taking Lisinopril-hydroCHLOROthiazide 10-12.5 MG Tablet Oral Taking Omeprazole 20 MG Capsule Delayed Release TAKE ONE CAPSULE BY MOUTH EVERY MORNING 30 MINUTES BEFORE MORNING MEAL Oral Medication List reviewed and reconciled with the patient * Allergies:?Morphine: heart p ulpitations yes[Allergies Verified] Objective: * Vitals:?Wt: 184 lb 6 oz, Ht: 62 in, BMI:33.72 Index, BP: 000/00 mm Hg, Temp: 97.3. * Examination: ???General Examination: ?GENERAL APPEARANCE:?pleasant, well nourished, well developed, in no acute distress.?EYES:?sclera non-icteric.?ORAL CAVITY:?mucosa moist.?NECK/THYROID:?no cervical lymphadenopathy, neck supple.?SKIN:?nonjaundiced, no spider angiomata..?HEART:?S1, S2 normal.?LUNGS:?clear to auscultation bilaterally.?ABDOMEN:?normal bowel sounds, no guarding or rigidity, no hepatosplenomegaly, no masses palpable, soft, nontender, nondistended..?EXTREMITIES:?no edema.?NEUROLOGIC:?alert and oriented.? Assessment: * Assessment: 1.?Nausea - R11.0 (Primary)? 2.?Encounter for screening for malignant neoplasm of colon - Z12.11?3.?Gastroesophageal reflux disease - K21.9?4.?Hernia, hiatal - K44.9? Overall, Vandana appears quit e well. We did review her procedure result [...] to keep you advised of her progress. Plan: * Treatment: 2.?Encounter for screening f or malignant neoplasm of colon? Notes: Repeat colonoscopy in 2033?? * Procedure Codes:?3017F COLOR ECTAL CA SCREEN DOC [id number] TOBACCO [id number] BP SCR NOT PRFRM REC REASON NOS * Preventive Medicine:? ??Counseling:?Care goal follow-up plan:?Above Normal BMI Follow-up?Giving encouragement to exercise,?BMI management provided?Yes.? * Follow Up:?prn * * Sign off status: Completed true * Provider:?Aashish Dimas MD Date:? 024 Generated for Erica tucker/Ronan/Atulsmitting on:?11/15/2024 12:29 PM EDT History and Physical Notes * HPI (History of Present Illness) Category Sub-Category Detail Notes Category Not es incontinence I saw Vandana in followup today in regard to her ongoing issues with nausea and reflux. I last saw Vandana in July, at which time she underwent an upper endoscopy and screening colonoscopy. The colonoscopy revealed only a hyperplastic polyp. The upper endoscopy did reveal a moderate sized hiatal hernia but no esophagitis, Marlow's esophagus, nor other pathology. Gastric biopsies were negative for H. pylori. At that time I did advise her to switch her omeprazole to the evening to see if that'll give her better relief of any nocturnal reflux that would be causing the ongoing morning nausea. However, she did not do that. She does continue to complain of nausea when she awakens. She denies any nocturnal symptoms of heartburn nor any heartburn during the day for that matter. She denies any vomiting, anorexia, early satiety, or dysphagia. Her bowel movements remain regular and without any signs of bleeding. She denies abdominal pain, jaundice, nor weight loss. She tries not to eat for 2 or 3 hours before bedtime. Her previous upper GI series in June revealed evidence of reflux as well. Of note, according to my records she did have similar symptoms many years ago in regard to nausea and reflux. At that time she had some significant intentional weight loss and that at least transiently corrected her GI symptoms. Examination Category Sub-Category Detail Notes Category Not es General Examination GENERAL APPEARANCE: pleasant , well nourished, well developed, in no acute distress EYES: sclera non-icteric NECK/THYROID: no cervical lymphade nopathy, neck supple HEART: S1, S2 normal LUNGS: clear to auscultatio n bilaterally ABDOMEN: normal bowel sounds, no guarding or rigidity, no hepatosplenomegaly, no masses palpable, soft, nontender, nondistended. NEUROLOGIC: alert and oriented SKIN: nonjaundiced, no spi krunal angiomata. EXTREMITIES: no edema ORAL CAVITY: mucosa moist
--- OUTSIDE RECORDS SUMMARY | 2024-11-15 12:30 | XMS_ITS ---
Author Organization [facility] Address [address] [place] [address] Care Team Providers Care Records Management Analyst Name Role Phone Hal Castelan MD Primary Care Provider Aashish Nunez [phone] Allergies Allergen (clinical drug ingredient) Drug/Non Drug Allergy documented on EMR Reaction Allergy Type Onset Date Status morphine Morphine heart pulpitations Drug Allergy Active REASON FOR VISIT patient presents today for fatty liver Medications Medication SIG (Take, Route, Frequency, Duration) Notes Start Date End Date Status Albuterol Sulfate HFA 108 (90 Base) MCG/ACT INHALE ONE PUFF BY MOUTH EVERY 4 HOURS NEEDED Inhalation for 90 Active Lisinopril-hydroCHLOROthiazi de 10-12.5 MG Oral for 30 Active Omeprazole 20 MG TAKE ONE CAPSULE BY MOUTH EVERY MORNING 30 MINUTES BEFORE MORNING MEAL Oral Active Levothyroxine Sodium Active Aspirin 81 81 MG 1 tablet Orally Once a day for 30 day(s) Active Multivitamin Adult - 1 tablet Orally Onc e a day for 30 day(s) Active Problems Problem Type SNOMED Code ICD Code Onset Dates Problem Status W/U Status Risk Notes Problem Fatty liver (K76.0) Active confirmed Vital Signs Blood pressure systolic 111 mm Hg 11/07/19 25 Blood pressure diastolic 77 mm Hg 025 Height 62 in 11/06/2024 Weight 183 lbs 11/06/2024 BMI 33.47 kg/m2 11/06/2024 Encounters Encounter Location Date Provider Diagnosis [facility] [address] [place] [address] 11/06/2024 Aashish Dimas Encounter for screening for malignant neoplasm of colon Z12.11 ; Nausea R11.0 and Fatty liver K76.0 Assessments Encounter Date [...] keep you advised of her progress.. 11/06/2024 Fatty liver (ICD-10 - K76.0) Speak [...] to keep you advised of her progress.. Plan Of Treatment Medication Medication Name Sig Start Date Stop Date Notes Omeprazole 20 MG TAKE ONE CAPSULE BY MOUTH EVERY MORNING 30 MINUTES BEFORE MORNING MEAL Oral Treatment Notes Assessment Notes Fatty liver Speak with Dr. Darrin little about the elevated cholesterol. Losing weight, watching diet,and keeping the cholesterol down would help with the fatty liver. Pending Test Test Name Order Date LIVER PROFILE 11/06/2024 Liver Fibrosis Pnl 11/06/2024 Next Appt Details Follow Up: 1 Year, Reason: Provider Name:Aashish Dimas , 11/07/2025 09:20:00 AM, [address], [address], [place], [address], Progress Notes * VANDANA MARTINEZDOB:1960 (64 yo F)Acc No.[id number]:11/06/2024 Progress Notes Patient:?VANDANA MARTINEZ Provider:?Aashish Dimas MD :1960???Age:64 Y???Sex:Female D ate:11/06/2024 Address:[address] [place] [address] [address] [id number] Pcp:Hal Castelan MD Subjective: * Chief Complaints: * ???1. Patient presents today for fatty liver. * HPI: ???incontinence:? I saw Vandana in the office today for follow-up of her reported fatty liver, as well as her history of reflux and nausea. I last saw Vandana in January of last year. At that time we had reviewed her previous upper endoscopy and colonoscopy. Since that time she has remained on her daily omeprazole and reports that has worked well for both for reflux and and minimizing her episodes of nausea. She denies any significant heartburn, dysphagia, early satiety, nausea, nor vomiting. Her appetite has been good. She denies any abdominal pain, jaundice, tensional weight loss, pruritus, edema, increasing abdominal girth, nor significant fatigue. She reports that her bowel movements are been regular and without any signs of bleeding. She does describe a history of being told of fatty liver many years ago but did lose a significant mount of weight and improved with diet. She has never had a liver biopsy nor been treated for fatty liver. She did have an abdominal ultrasound in 2022 that described a fatty liver, but no evidence of any liver mass, biliary disease, cirrhosis, splenomegaly, nor ascites. Overall, the liver otherwise appeared normal. Laboratories from 2023 revealed a completely normal liver profile and normal hemoglobin A1c. She also had a normal CBC with platelet count. This past June she had a cholesterol level of 262, LDL cholesterol of 180, a triglyceride level of 89, and HDL cholesterol of 65. * Medical History:?Hypothyroid ism, Denies AR,DM,CVA,renal disease, GERD in 2008- 2009-had an UGI that showed a HH and reflux-lost 60# and all symptoms have resolved-on no medicines , Asthma-exercised induced , Kidney stones-[facility], Negative screening colonoscopy in 11/2012, ? TIA with right-sided weakness--having a TIA w/u with a neurologist as of the 06/02/2021 OV---found to have a PFO and closed via cardiac cath at [facility], Screening colonoscopy in July of 2023 with only a hyperplastic polyp removed, Upper endoscopy in July of 2023 revealed a moderate sized hiatal hernia, but no evidence of any esophagitis, Marlow's esophagus, ulcer disease, nor H. pylori. * Surgical History:?Tonsils , D&C . * Family History:?Father: dece ased.?Mother: 72 yrs.? Denies family hx. of colorectal cancer.? brother alive liver cancer. * Social History:?Tobacco Use:?Tobacco Use/Smoking?Are you a: nonsmoker.?Drugs/Alcohol:?Alcohol Screen?Points: 4, Interpretation: Positive.?Miscellaneous:?Marital status: . Occupation: [employer]. ???Nonsmoker; 1-2 glasses of wine QD. * Medications:?Taking Multivit voss Adult - Tablet 1 tablet Orally Once a day , Taking Aspirin 81 81 MG Tablet Chewable 1 tablet Orally Once a day , Taking Levothyroxine Sodium , Taking Albuterol Sulfate HFA 108 (90 Base) MCG/ACT Aerosol Solution INHALE ONE PUFF BY MOUTH EVERY 4 HOURS NEEDED Inhalation , Taking Lisinopril-hydroCHLOROthiazide 10-12.5 MG Tablet Oral , Taking Omeprazole 20 MG Capsule Delayed Release TAKE ONE CAPSULE BY MOUTH EVERY MORNING 30 MINUTES BEFORE MORNING MEAL Oral , Medication List reviewed and reconciled with the patient * Allergies:?Morphine: heart p ulpitations. Objective: * Vitals:?Wt:183lbs, Ht: 62 in , BMI:33.47Index, BP:111/77mm Hg, Wt-k.01. Assessment: * Assessment: 1.?Encounter for screening f or malignant neoplasm of colon - Z12.11 (Primary)???2.?Nausea - R11.0???3.?Fatty liver - K76.0??? Overall, Vandana appears quit e well. She is not having any new [...] to keep you advised of her progress.. Plan: * Treatment: 2.?Others? Continue Omeprazole Capsule Delayed Release, 20 MG, TAKE ONE CAPSULE BY MOUTH EVERY MORNING 30 MINUTES BEFORE MORNING MEAL, Oral.?? * Preventive Medicine:? ??Counseling:?Care goal follow-up plan:?Above Normal BMI Follow-up?Giving encouragement to exercise,?BMI management provided?Yes.? * Follow Up:?1 Year * * The named appointment provid er may or may not be the originator of this progress note, and it is not deemed complete until electronically signed by the appointment provider. Sign off status: Pending * Provider:?Aashish Dimas MD Date:? 025 Generated for Erica tucker/Ronan/Mikeitting on:?11/15/2024 12:30 PM EDT History and Physical Notes * HPI (History of Present Illness) Category Sub-Category Detail Notes Category Not es incontinence I saw Vandana in the office today for follow-up of her reported fatty liver, as well as her history of reflux and nausea. I last saw Vandana in January of last year. At that time we had reviewed her previous upper endoscopy and colonoscopy. Since that time she has remained on her daily omeprazole and reports that has worked well for both for reflux and and minimizing her episodes of nausea. She denies any significant heartburn, dysphagia, early satiety, nausea, nor vomiting. Her appetite has been good. She denies any abdominal pain, jaundice, tensional weight loss, pruritus, edema, increasing abdominal girth, nor significant fatigue. She reports that her bowel movements are been regular and without any signs of bleeding. She does describe a history of being told of fatty liver many years ago but did lose a significant mount of weight and improved with diet. She has never had a liver biopsy nor been treated for fatty liver. She did have an abdominal ultrasound in 2022 that described a fatty liver, but no evidence of any liver mass, biliary disease, cirrhosis, splenomegaly, nor ascites. Overall, the liver otherwise appeared normal. Laboratories from 2023 revealed a completely normal liver profile and normal hemoglobin A1c. She also had a normal CBC with platelet count. This past June she had a cholesterol level of 262, LDL cholesterol of 180, a triglyceride level of 89, and HDL cholesterol of 65.
--- OUTSIDE RECORDS SUMMARY | 2024-11-15 12:30 | XMS_ITS ---
Author Organization [facility] Address [address] [place] [address] Care Team Providers Care Photoresist Printer Name Role Phone Hal Castelan MD Primary Care Provider Aashish Nunez [phone] REASON FOR VISIT results of biopsy from late July Encounters Encounter Location Date Provider Diagnosis [facility] [address] [place] [address] 09/05/2023 Aashish Dimas Plan Of Treatment Next Appt Details Provider Name:Aashish Dimas , 11/07/2025 09:20:00 AM, [address], [address], [place], [address], Progress Notes * RONAL MARTINEZDOB:1960 (63 yo F)Acc No.[id number]:09/05/2023 Patient:?MICHELLEURSZULAYL :1960???Age:63 Y???Sex:Female Address:[place], [address] * true * Date:? Generated for Printi garrett/Ronan/eTransmitting on:?11/15/2024 12:29 PM EDT
[2024-11-15 13:42] LABS: Alanine Aminotransferase 37 U/L (0-31); Albumin Level 4.1 g/dL (3.5-5.0); Alkaline Phosphatase 101 U/L (39-117); Aspartate Amino Transferase 28 U/L (5-31); Bilirubin Direct 0.1 mg/dL (0.0-0.5); Bilirubin Total 0.3 mg/dL (0.0-1.0); Total Protein 6.7 g/dL (6.5-8.0)
[2024-11-22 17:19] LABS: FIB-ALT 29 U/L (6-29); FIB-Alpha-2-Macroglobulin 139 mg/dL (106-279); FIB-Apolipoprotein A1 193 mg/dL (101-198); FIB-GGT 15 U/L (3-65); FIB-Haptoglobin 102 mg/dL (43-212); FIB-Total Bilirubin 0.3 mg/dL (0.2-1.2); Liver Fibrosis Score 0.05; Liver Fibrosis Stage F0; Nec Inflam Act Grade A0; Reference ID 5509199
== END 2024-11-15 12:16 | disposition home or self-care (01) ==
LOC: HO.LAB 12:15
PROVIDERS: PCP Internal Medicine; Visit Provider Internal Medicine
DX: K76.0 Fatty (change of) liver, not elsewhere classified (principal)
CPT/HCPCS: 36415; 80076; 81596

== ENCOUNTER 2024-12-31 10:16 | Outpatient (REF) | payer BC, SELFPAY ==
--- OUTSIDE RECORDS SUMMARY | 2024-12-03 06:15 | XMS_ITS ---
Author Organization Hal Castelan MD Address [address] [place] [phone] Care Team Providers Care Director Of Housing Name Role Phone Hal Castelan Primary Care Provider Allergies No Known Allergies REASON FOR VISIT discuss chol level Medications Medication SIG (Take, Route, Frequency, Duration) Notes Start Date End Date Status Levothyroxine Sodium 88 MCG TAKE ONE TABLET BY MOUTH EVERY MORNING ON EMPTY STOMACH. for 90 Active Atorvastatin Calcium 40 MG 1 tablet Orally Once a day for 30 days 12/03/2024 Active Lisinopril-hydroCHLOROthi azide 10-12.5 MG TAKE ONE TABLET BY MOUTH EVERY DAY for 30 Active Omeprazole 20 MG TAKE ONE CAPSULE BY MOUTH EVERY MORNING 30 MINUTES BEFORE MORNING MEAL Active Albuterol Sulfate HFA 108 (90 Base) MCG/ACT USE 1 PUFF BY MOUTH EVERY 4 HOURS NEEDED for 25 Active Nystatin 489228 UNIT/GM 1 application to affected area Externally Twice a day for 30 days 01/19/2019 Not-Taking Advair Diskus 500-50 MCG/DOSE INHALE ONE PUFF(S) TWICE A DAY Inhalation Twice a day for 30 Not-Taking ProAir HFA 108 (90 Base) MCG/ACT 1 puff as needed Inhalation every 4 hrs for 30 days Not-Taking Aspirin 81 81 MG 1 tablet Orally Once a day for 30 day(s) 04/28/2021 Active Vital Signs Blood pressure systolic 112 mm Hg 12/04/19 25 Blood pressure diastolic 70 mm Hg 025 Height 61.75 in 12/03/2024 Weight 187 lbs 12/03/2024 BMI 34.48 kg/m2 12/03/2024 Encounters Encounter Location Date Provider Diagnosis Hal Castelan MD [address] [place] [address] [address] [place] [phone] 12/03/2024 Hal Castelan Pure hypercholestero lemia E78.00 and Fatty liver K76.0 Assessments Encounter Date Diagnosis (ICD Code) Assessment Notes Treatment Notes Treatment Clinical Notes Section Notes 12/03/2024 Pure hypercholesterolemia (ICD-10 - E78.00) discussed previous lab results , patient will to try medication, advised fara diet and exercise 12/03/2024 Fatty liver (ICD-10 - K76.0) will continue to monitor Plan Of Treatment Medication Medication Name Sig Start Date Stop Date Notes Atorvastatin Calcium 40 MG 1 tablet Oral ly Once a day for 30 days 12/03/2024 Treatment Notes Assessment Notes Pure hypercholesterolemia discussed prev ious lab results , patient will to try medication, advised fara diet and exercise Fatty liver will continue to mon itor Future Test Test Name Order Date Liver Panel 02/02/2025 Lipid Panel 02/02/2025 Next Appt Details Provider Name:Hal Ponce iejimmy, 01/07/2025 08:30:00 AM, [address] [place] [address], [address], [place], [place], [phone], Provider Name:Hal mercedes, 02/05/2025 07:15:00 AM, [address] [place] [address], [address], [place], [place], [phone], Progress Notes * Vandana MARTINEZ ADOB:[birth year] (64 yo F)Acc No.[id number]:12/03/2024 Progress Notes Patient: Vandana RODRIGUEZ Provider: Ana Castelan MD :1960 A ge:64 Y S ex:Female Date:12/03/2024 Address:[address] [place] [address] Subjective: * Chief Complaints: * D iscuss chol level * HPI: S ymptom(s): patient is a 64 yo female here to discuss cholesterol. * ROS: G eneral/Constitutional: Denies C hills. D enies F atigue. D enies F ever. D enies H eadache. E NT: Denies S ore throat. R espiratory: Denies C ough. D enies S hortness of breath at rest. D enies S hortness of breath with exertion. G astrointestinal: Denies D iarrhea. D enies N ausea. * Medical History: * Surgical History: * Hospitalization/Major Diagno stic Procedure: * Medications: T akingAspirin 81 81 MG Tablet Chewable 1 tablet Orally Once a day Omeprazole 20 MG Capsule Delayed Release TAKE ONE CAPSULE BY MOUTH EVERY MORNING 30 MINUTES BEFORE MORNING MEAL Albuterol Sulfate HFA 108 (90 Base) MCG/ACT Aerosol Solution USE 1 PUFF BY MOUTH EVERY 4 HOURS NEEDED Lisinopril-hydroCHLOROthiazide 10-12.5 MG Tablet TAKE ONE TABLET BY MOUTH EVERY DAY Levothyroxine Sodium 88 MCG Tablet TAKE ONE TABLET BY MOUTH EVERY MORNING ON EMPTY STOMACH. Taking Aspirin 81 81 MG Tablet Chewable 1 tablet Orally Once a day Taking Omeprazole 20 MG Capsule Delayed Release TAKE ONE CAPSULE BY MOUTH EVERY MORNING 30 MINUTES BEFORE MORNING MEAL Taking Albuterol Sulfate HFA 108 (90 Base) MCG/ACT Aerosol Solution USE 1 PUFF BY MOUTH EVERY 4 HOURS NEEDED Taking Lisinopril-hydroCHLOROthiazide 10-12.5 MG Tablet TAKE ONE TABLET BY MOUTH EVERY DAY Taking Levothyroxine Sodium 88 MCG Tablet TAKE ONE TABLET BY MOUTH EVERY MORNING ON EMPTY STOMACH. Not-Taking/PRNProAir HFA 108 (90 Base) MCG/ACT Aerosol Solution 1 puff as needed Inhalation every 4 hrs Nystatin 147468 UNIT/GM Cream 1 application to affected area Externally Twice a day Advair Diskus 500-50 MCG/DOSE Aerosol Powder Breath Activated INHALE ONE PUFF(S) TWICE A DAY Inhalation Twice a day Medication List reviewed and reconciled with the patientNot- Taking/PRN ProAir HFA 108 (90 Base) MCG/ACT Aerosol Solution 1 puff as needed Inhalation every 4 hrs Not-Taking/PRN Nystatin 368815 UNIT/GM Cream 1 application to affected area Externally Twice a day Not-Taking/PRN Advair Diskus 500-50 MCG/DOSE Aerosol Powder Breath Activated INHALE ONE PUFF(S) TWICE A DAY Inhalation Twice a day Medication List reviewed and reconciled with the patient * Allergies: N .K.D.A.yes[Allergies Verified] Objective: * Vitals: H t: 61.75, Wt: 187, BMI:34.48, BP:112/70, Wt-k.82. * Examination: G eneral Examination: GENERAL APPEARANCE: w ell developed, well nourished. HEAD: n ormocephalic. SKIN: g ood turgor. HEART: n o murmurs, rubs, gallops, regular rate and rhythm.? LUNGS: n o wheezes, rales, rhonchi, good air movement, clear to auscultation bilaterally. Assessment: * Assessment: 1. P ure hypercholesterolemia - E78.00 (Primary) 2 . F atty liver - K76.0? Plan: * Treatment: 2. F atty liver Notes: will continue to monitor * Procedure Codes: * * Sign off status: Completed true * Provider: Ana Castelan MD Date: 0 12/03/2024 Generated for Erica tucker/Ronan/Mark on: 12/31/2024 11:04 AM EDT History and Physical Notes * HPI (History of Present Illness) Category Sub-Category Detail Notes Category Not es Symptom(s) patient is a 64 yo female here to discuss cholesterol Examination Category Sub-Category Detail Notes Category Not es General Examination GENERAL APPEARANCE: well developed , well nourished HEAD: normocephalic HEART: no murmurs, rubs, ga llops, regular rate and rhythm LUNGS: no wheezes, rales, r honchi, good air movement, clear to auscultation bilaterally SKIN: good turgor
[2024-12-31 10:20] LABS: MANUAL DIFF FLAG NO
--- OUTSIDE RECORDS SUMMARY | 2024-12-31 11:05 | XMS_ITS | Clinical Summary ---
Author Organization [facility] Address [address] [place] [address] Care Team Providers Care Market Superintendent Name Role Phone Unavailable Primary Care Provider [...]
[2024-12-31 11:16] LABS: Hematocrit 40.0 % (37.0-47.0); Hemoglobin 13.4 g/dl (12.0-16.0); Imm Gran Abs Auto 0.03 X10*3/uL (0.00-0.03); Imm Gran Pct Auto 0.5 % (0.0-0.4); Lymphocytes Absolute Auto 1.5 X10*3/uL (1.2-4.9); Mean Corpuscular HGB Conc 33.5 g/dl (31.0-35.0); Mean Corpuscular Hemoglobin 32.3 pg (27.0-33.0); Mean Corpuscular Volume 96.4 fL (80.0-98.0); NRBC Abs Auto 0.000 X10*3/uL (0.0-0.012); NRBC Pct Auto 0.0 /100WBC (0.0-0.2); Platelet Count 388 X10*3/uL (160-400); Red Blood Count 4.15 X10*6/uL (4.20-5.50); White Blood Count 6.2 X10*3/uL (4.8-10.8)
[2024-12-31 11:31] LABS: Hemoglobin A1C 133.4590 umol/L; Total Hemoglobin (HGBA1C) 3521.2077 umol/L
[2024-12-31 12:45] LABS: Anion Gap 13 (12-20)
[2024-12-31 13:01] LABS: Alanine Aminotransferase 66 U/L (0-31); Albumin Level 4.2 g/dL (3.5-5.0); Alkaline Phosphatase 121 U/L (39-117); Aspartate Amino Transferase 45 U/L (5-31); Blood Urea Nitrogen 21 mg/dL (9-16); Calcium 9.1 mg/dL (8.4-10.2); Carbon Dioxide 25 mmol/L (22-29); Chloride 107 mmol/L (96-108); Cholesterol 185 mg/dL (<200); Estimated Glomerular Filt Rate > 60; HDL Cholesterol 59 mg/dL (>40); Potassium 4.1 mmol/L (3.3-5.1); Sodium 141 mmol/L (135-145); Total Protein 6.8 g/dL (6.5-8.0); Triglycerides 65 mg/dL (<150)
== END 2024-12-31 10:17 | disposition home or self-care (01) ==
LOC: HO.LNP 10:16
PROVIDERS: Visit Provider Internal Medicine
DX: Z00.00 Encounter for general adult medical examination without abnormal findings (principal); E03.9 Hypothyroidism, unspecified; R73.09 Other abnormal glucose; E55.9 Vitamin D deficiency, unspecified
CPT/HCPCS: 80053; 80061; 82306; 83036; 84443; 85025